=== PATIENT | female | born 1975 | race Caucasian/White ===

== ENCOUNTER 2016-06-20 10:15 | Emergency (ER) | payer BC ==
[2016-06-20] MEDS ORDERED: Ketorolac INJ* 60 MG/2 ML VIAL IM ONE (10:51)
--- NOTE | 2016-06-20 11:20 | ED ---
Upper Extremity Pain - HPI Summary HPI Summary: Patient presents to ED with right shoulder pain after stretching the shoulder during an injury 2 days ago. She states she has chronic pain in the shoulder from previous injuries and 2 days ago trapped her fingers inside a chair while walking which pulled the shoulder back creating pain in the anterior shoulder. Since that time, she has been unable to move it and she is unable to lift it without the aid of her left arm. She has taken ibuprofen without relief. She has an appt with Dr. Pereira tomorrow, but states she was unable to wait d/t pain. Denies other complaints or injury. The pain is localized to the right anterior shoulder and does not radiate. Pain is 8/10 and with attempting movement is 10/10. Pain is not worse at a specific time of day and nothing makes it better or worse. - History of Current Complaint Chief Complaint: EDShoulderClavicWaldoj Stated Complaint: RT SHOULDER PAIN Time Seen by Provider: 06/20/16 10:26 Hx Obtained From: Patient Hx Last Menstrual Period: current Mechanism Of Injury: Twisted Onset/Duration: Started Days Ago Timing: Constant Severity Initially: Moderate Severity Currently: Severe Pain Location: Shoulder Character: Aching, Burning Aggravating Factor(s): Movement, Lifting, Flexion, Extension, Internal/External Rotation, Abduction, Adduction Alleviating Factor(s): Rest, Ice Associated Signs & Symptoms: Positive: Negative Related History: Similar Episode/Dx As - previous shoulder injuries to the shoulder - Risk Factors Non-Orthopedic Risk Factor: Negative DVT Risk Factors: Negative Septic Arthritis Risk Factor: Negative Compartment Syndrome Risk Factors: Pain - Allergies/Home Medications Allergies/Adverse Reactions: Allergies Allergy/AdvReac Type Severity Reaction Status Date / Time Hydromorphone [From Dilaudid] Allergy Hallucinations, Verified 06/20/16 10:21 vomiting Meperidine [From Demerol HCl] Allergy Hallucinati Verified 06/20/16 10:21 ons Codeine AdvReac Mild Nausea Verified 06/20/16 10:21 Morphine AdvReac Mild Nausea Verified 06/20/16 10:21 Home Medications: Home Medications metFORMIN* [Glucophage 500 MG TAB *] 500 mg PO DAILY 06/20/16 [History Confirmed 06/20/16] PMH/Surg Hx/FS Hx/Imm Hx Previously Healthy: Yes Endocrine/Hematology History: Reports: Hx Diabetes Denies: Hx Anticoagulant Therapy, Hx Bone Marrow Disease, Hx Sickle Cell Disease, Hx Thyroid Disease, Hx Anemia Cardiovascular History: Reports: Other Cardiovascular Problems/Disorders - PE Denies: Hx Hypertension, Hx Pacemaker/ICD Respiratory History: Reports: Hx Pulmonary Embolism Denies: Hx Asthma, Hx Chronic Obstructive Pulmonary Disease (COPD), Hx Sleep Apnea, Other Respiratory Problems/Disorders GI History: Reports: Hx Hiatal Hernia - STATES HAS NO PROBLEMS WITH Denies: Hx Crohn's Disease, Hx Gastroesophageal Reflux Disease, Hx Irritable Bowel, Hx Ulcer History: Reports: Hx Kidney Infection - HX OF Denies: Other Problems/Disorders Musculoskeletal History: Reports: Hx Back Problems, Hx Tendonitis - RIGHT ELBOW , Other Musculoskeletal History Denies: Hx Arthritis Sensory History: Reports: Hx Contacts or Glasses Denies: Hx Hearing Aid Opthamlomology History: Reports: Hx Contacts or Glasses Neurological History: Reports: Hx Migraine - PERIOD RELATED Denies: Hx Nerve Disease, Hx Seizures Psychiatric History: Denies: Hx Anxiety, Hx Depression, Hx Panic Disorder - Surgical History Surgery Procedure, Year, and Place: [id number] [facility]. LEFT KNEE ARTHROSCOPY - 2003 [facility]. T+A 2006 [facility]. APPENDIX- 2008 [facility]. LEFT POINTER FINGER TRIGGER- 2009 [facility], CARPAL TUNNEL LT WRIST 11/2012. D&C [facility]. left trigger thumb Nov 2013. discectomy lumber 2013. SALIVARY GLAND REMOVED 2014. Hx Anesthesia Reactions: No - STATES SHE "COMES OUT OF ANESTHESIA SLOW" - Immunization History Date of Tetanus Vaccine: 2008 Date of Influenza Vaccine: Fall 2011 Hx Pertussis Vaccination: No Immunizations Up to Date: No Infectious Disease History: No Infectious Disease History: Denies: Hx Clostridium Difficile, Hx Hepatitis, Hx Human Immunodeficiency Virus (HIV), Hx of Known/Suspected MRSA, Hx Shingles, Hx Tuberculosis, Hx Known/ Suspected VRE, Hx Known/Suspected VRSA, History Other Infectious Disease, Traveled Outside the [place] in Last 30 Days - Family History Known Family History: Positive: None - Social History Occupation: Employed Full-time Lives: With Family Alcohol Use: Rare Hx Substance Use: No Substance Use Type: Reports: None Hx Tobacco Use: No Smoking Status (MU): Never Smoked Tobacco Do You Chew or Dip Tobacco: No Have You Chewed or Dipped Tobacco in the LAST YEAR: No Review of Systems Constitutional: Negative ENT: Negative Cardiovascular: Negative Respiratory: Negative Positive: no symptoms reported, see HPI Positive: Arthralgia - left anterior shoulder pain Skin: Negative Neurological: Negative All Other Systems Reviewed And Are Negative: Yes Physical Exam Triage Information Reviewed: Yes Vital Signs On Initial Exam: Initial Vitals Temp 98.3 F 06/20/16 10:22 Vital Signs Reviewed: Yes Appearance: Positive: Well-Appearing, No Pain Distress, Well-Nourished Skin: Positive: Warm, Skin Color Reflects Adequate Perfusion Head/Face: Positive: Normal Head/Face Inspection Eyes: Positive: EOMI, RASHAUN, Conjunctiva Clear Neck: Positive: Supple, No Lymphadenopathy Respiratory/Lung Sounds: Positive: Clear to Auscultation, Breath Sounds Present Cardiovascular: Positive: RRR Musculoskeletal: Positive: Limited @ - right shoulder adduction and abduction Neurological: Positive: Sensory/Motor Intact, Alert, Oriented to Person Place, Time, Speech Normal Psychiatric: Positive: Normal - Madeleine Coma Scale Best Eye Response: 4 - Spontaneous Best Motor Response: 6 - Obeys Commands Best Verbal Response: 5 - Oriented Coma Scale Total: 15 Diagnostics - Vital Signs Vital Signs Temp Pulse Resp BP Pulse Ox 06/20/16 10:41 92 98 06/20/16 10:40 160/111 06/20/16 10:23 98.1 F 95 16 141/97 100 06/20/16 10:22 98.3 F - Laboratory Lab Statement: Any lab studies that have been ordered have been reviewed, and results considered in the medical decision making process. Course/Dx - Course Course Of Treatment: Patient sent to xray d/t 10/10 pain and inability to move. Xray negative for pathologies. Unable to perform special shoulder tests d/t pain. Toradol given with minimal improvement. Precription given for hydrocodone. Patient will follow up with Dr. Pereira tomorrow. Sling given and educated to remain on until follow up for comfort. Moist heat to the area. Note for work x 2 days. - Diagnoses Differential Diagnosis/HQI/PQRI: Positive: Fracture (Open), Fracture (Closed), Strain, Sprain Provider Diagnoses: Rotator cuff injury Discharge - Discharge Plan Condition: Stable Disposition: HOME Prescriptions: HYDROcodone/ACETAMIN 5-325 MG* [Jackson 5-325 TAB*] 1 tab PO Q6H PRN #12 tab MDD 4 PRN Reason: Pain Patient Education Materials: Rotator Cuff Injury (ED), Rotator Cuff Tendinitis (ED) Forms: *Work Release Referrals: Yuliet Harper MD [Primary Care Provider] - Cory Pereira MD [Medical Doctor] - Additional Instructions: Dx. Muscle Strain Ibuprofen 600mg three times daily with meals for discomfort. For symptoms not well controlled with Ibuprofen, add the Jackson medication as prescribed. Alternate these two medications for maximum effect. Return to ED if symptoms worsen or fail to improve, notice worsening swelling, warmth or redness around the joint, develop fever, or pain is uncontrolled with OTC medications. Moist heat to the area for comfort. Warm showers or baths may improve symptoms. It is important to remain mobile as tolerated to prevent stiffening of the joints and delay healing. Follow up with your PCP and Dr. Pereira as scheduled tomorrow. Refrain from working for 2 days. Remain in sling for comfort.
--- NOTE | 2016-06-20 11:40 | RAD ---
Indication: RIGHT shoulder injury one month ago and reinjury hyperextending. Pain. Comparison: No relevant prior exams available on the [facility] PACS. Technique: Internal and external rotation AP and scapular Y views RIGHT shoulder Report: Normal acromioclavicular and glenohumeral joint alignment. Negative for arthropathic change. Negative for fracture or focal osseous lesion. Negative for stigmata of calcific tendinopathy. Unremarkable soft tissue contours. IMPRESSION: Negative exam.
[2016-06-20 12:06] VITALS: BP 116/87
== END 2016-06-20 12:07 | disposition home or self-care (01) ==
LOC: ED 10:15
DX: M25.511 Pain in right shoulder (principal); S46.001A Unspecified injury of muscle(s) and tendon(s) of the rotator cuff of right shoulder, initial encounter; X58.XXXA Exposure to other specified factors, initial encounter; Y92.9 Unspecified place or not applicable; E11.9 Type 2 diabetes mellitus without complications; Z79.84 Long term (current) use of oral hypoglycemic drugs; Z88.5 Allergy status to narcotic agent; Z86.711 Personal history of pulmonary embolism
CPT/HCPCS: 96372; 99282; J1885

== ENCOUNTER 2016-12-08 06:06 | Day surgery (SDC) | payer BC ==
[~2016-12-08 06:06] MED LIST: Buffered Lidocaine 0.9% SYRIN* 5 ML/SYR SYRINGE INTRADERM ONE
[2016-12-08] MEDS ORDERED: Buffered Lidocaine 0.9% SYRIN* 5 ML/SYR SYRINGE ONE (06:22)
[2016-12-08 06:56] LABS: Hematocrit 37 % (35-47); Hemoglobin 12.7 g/dl (12.0-16.0); Mean Corpuscular HGB Conc 35 g/dl (31-36); Mean Corpuscular Hemoglobin 27 pg (27-31); Mean Corpuscular Volume 79 fL (80-97); Mean Platelet Volume 7 um3 (7.4-10.4); Red Blood Count 4.68 10^6/ul (4.0-5.4); Red Cell Distribution Width 14 % (10.5-15); White Blood Count 6.1 10^3/ul (3.5-10.8)
[2016-12-08] MEDS ORDERED: Silver Nitrate/Potassium Nitr* 1 EA STICK ONE (07:25)
[2016-12-08] MEDS ORDERED: fentaNYL* 50 MCG/ML 2 ML VIAL (100 MCG VIAL) ONE (07:47)
[2016-12-08] MEDS ORDERED: Midazolam* 1 MG/ML 5 ML VIAL (5 MG) ONE (07:47)
[2016-12-08] MEDS ORDERED: Ondansetron INJ* 2 MG/ML VIAL ONE (08:50)
[2016-12-08] MEDS ORDERED: Propofol* 10 MG/ML 20 ML BTL IV PUSH ONE (08:50)
[2016-12-08] MEDS ORDERED: Ketorolac INJ* 30 MG/ML 1 ML VIAL IV PRN (08:52)
[2016-12-08] MEDS ORDERED: Hydrocodone/APAP 5/300 (NF) TAB PO PRN (09:14)
[2016-12-08] MEDS ORDERED: Ketorolac INJ* 30 MG/ML 1 ML VIAL ONE (09:43)
[2016-12-08 10:10] VITALS: BP 146/90
--- NOTE | 2016-12-09 03:20 | OP ---
OPERATIVE REPORT: DATE OF OPERATION: 12/08/16 - [facility] DATE OF : 73 SURGEON: Dr. Ribera. ANESTHESIOLOGIST: Dr. Houston. ANESTHESIA: Spinal. PRE-OP DIAGNOSIS: Menorrhagia, thickened endometrium. POST-OP DIAGNOSIS: Menorrhagia, thickened endometrium. OPERATIVE PROCEDURE: Dilation, hysteroscopy, MyoSure removal of polyp, and curettage. ESTIMATED BLOOD LOSS: Minimal, less than 30 cc. FINDINGS: Small retroverted uterus, polyp approximately 1.5 cm originating from the left fundus of the uterus. No adnexal mass is palpated. COMPLICATIONS: None. COUNTS: Sponge, lap and needle count were correct x2. CONDITION: The patient was brought to recovery room, awake and in stable condition. DESCRIPTION OF PROCEDURE: The patient was brought to the operating room. When anesthesia was found to be adequate, the patient was prepped and draped in the usual sterile fashion in the dorsal lithotomy position. Sequential compression devices were activated throughout the surgery. Time-out was performed. The bladder was emptied of 300 cc of urine. The weighted speculum was placed in the vagina. The anterior lip of the cervix was grasped with a single tooth tenaculum and the cervix was gently and easily dilated with graduated Hegar dilators to a size 8. The MyoSure scope was then introduced with the above findings noted. The MyoSure was used to remove the polyp in its entirety. The specimen was sent to pathology. The scope was removed. Curettage was performed and endometrial curettings were then sent to pathology. All instruments removed from the vagina. Excellent hemostasis was noted and the patient was brought to the recovery room, awake and in stable condition. [id number]/[facility] #: [id number] [facility]
== END 2016-12-08 10:12 | disposition home or self-care (01) ==
LOC: OR 06:06
PROVIDERS: ATTEND Obstetrics & Gynecology
DX: N84.0 Polyp of corpus uteri (principal); N92.0 Excessive and frequent menstruation with regular cycle; R93.8 Abnormal findings on diagnostic imaging of other specified body structures; D25.9 Leiomyoma of uterus, unspecified; Z88.5 Allergy status to narcotic agent; E11.9 Type 2 diabetes mellitus without complications; Z79.84 Long term (current) use of oral hypoglycemic drugs; N92.5 Other specified irregular menstruation; N85.8 Other specified noninflammatory disorders of uterus; I10 Essential (primary) hypertension; E66.9 Obesity, unspecified; Z68.38 Body mass index [BMI] 38.0-38.9, adult
CPT/HCPCS: 36415; 62323; 81025; 85025; 86850; 86900; 86901; 88305; A9270-GY; J1885; J2250; J2405; J2704; J3010

== ENCOUNTER 2017-03-23 06:31 | Observation (INO) | payer BC ==
[~2017-03-23 06:31] MED LIST changes: +Acetaminophen IV 1GM/100ML * 1,000 MG/100 ML VIAL IVPB ONE; +Famotidine IV* 10 MG/ML 2 ML (20 mg) IV ONE; +Scopolamine 1.5 mg* PATCH TRANSDERM ONE
[2017-03-23] MEDS ORDERED: Famotidine IV* 10 MG/ML 2 ML (20 mg) ONE (06:43)
[2017-03-23] MEDS ORDERED: Buffered Lidocaine 0.9% SYRIN* 5 ML/SYR SYRINGE ONE (06:43)
[2017-03-23] MEDS ORDERED: Scopolamine 1.5 mg* PATCH ONE (06:43)
[2017-03-23] MEDS ORDERED: Midazolam* 1 MG/ML 2 ML VIAL (2 MG) ONE ×2 (06:54→08:05)
[2017-03-23] MEDS ORDERED: fentaNYL* 50 MCG/ML 2 ML VIAL (100 MCG VIAL) ONE ×2 (06:54→08:06)
[2017-03-23] MEDS ORDERED: Lidocaine 1% MPF wEPI 200,000* 30 ML SDV ONE (07:02)
[2017-03-23] MEDS ORDERED: Thrombin 5,000 UNITS* 1 APPLIC KIT - topical use - TOPICAL ONE (07:02)
[2017-03-23] MEDS ORDERED: Bacitracin IV* 50,000 UNITS INJ ONE (07:02)
[2017-03-23] MEDS ORDERED: Rocuronium* 10 MG/ML VIAL ONE ×2 (07:05→08:56)
[2017-03-23] MEDS ORDERED: Lidocaine 2% PF * 5 ML VIAL ONE (07:06)
[2017-03-23] MEDS ORDERED: Acetaminophen IV 1GM/100ML * 0 ML ONE (07:21)
[2017-03-23] MEDS ORDERED: Nalbuphine* 20 MG/ML 1 ML VIAL IV PRN (07:25)
[2017-03-23] MEDS ORDERED: Ondansetron INJ* 2 MG/ML VIAL IV PRN ×2 (07:25→11:29)
[2017-03-23] MEDS ORDERED: fentaNYL* 50 MCG/ML 2 ML VIAL (100 MCG VIAL) IV PRN (07:25)
[2017-03-23] MEDS ORDERED: oxyCODONE TAB* 5 MG TAB PO PRN (07:25)
[2017-03-23] MEDS ORDERED: PROCHLORPERAZINE INJ 5 MG/ML 2 ML VIAL IV PRN (07:25)
[2017-03-23] MEDS ORDERED: Naloxone* 0.4 MG/ML 1 ML VIAL IV PRN (07:25)
[2017-03-23] MEDS ORDERED: Sugammadex * 200 MG/2 ML VIAL IV PUSH ONE (07:33)
[2017-03-23] MEDS ORDERED: ceFAZolin 2 GM PREMIX (*) 2 GM/50 ML BAG IVPB ONE (08:00)
[2017-03-23] MEDS ORDERED: Propofol* 500 MG/50 ML BTL ONE (08:26)
[2017-03-23] MEDS ORDERED: Metoclopramide IV* 5 MG/ML 2 ML VIAL ONE (08:42)
[2017-03-23] MEDS ORDERED: Ondansetron INJ* 2 MG/ML VIAL ONE (08:42)
[2017-03-23] MEDS ORDERED: Ketorolac INJ* 30 MG/ML 1 ML VIAL ONE (08:42)
[2017-03-23] MEDS ORDERED: EPHEDrine (Pressors)* 50 MG/ML VIAL ONE (08:50)
[2017-03-23] MEDS ORDERED: Acetaminophen IV 1GM/100ML * 100 ML ONE (10:14)
--- NOTE | 2017-03-23 10:38 | RAD ---
INDICATION: Lumbar discectomy at L5-S1 COMPARISONS: MRI dated January 25, 2017 TECHNIQUE: Fluoroscopy was provided for a surgical procedure. Total fluoroscopy time is: 10.2 seconds FINDINGS: There is transitional anatomy. Spot images demonstrate a metallic probe opposite of L4-L5 using a candidate ischemia as described on the previous MRI. IMPRESSION: FLUOROSCOPY WAS PROVIDED FOR A SURGICAL PROCEDURE CPT II Codes: 6045F
[2017-03-23] MEDS ORDERED: Insulin REGULAR(*) 1 UNITS UNIT ONE (11:10)
[2017-03-23] MEDS ORDERED: Magnesium Hydroxide LIQ* 30 ML UDC PO PRN (11:29)
[2017-03-23] MEDS ORDERED: HYDROcodone/ACETAMIN 5-325 MG* 1 TAB PO PRN ×2 (11:29)
[2017-03-23] MEDS ORDERED: Dextrose 50% Syringe 50 ML* 25 GM/50 ML SYRINGE IV PUSH PRN (17:03)
[2017-03-23] MEDS ORDERED: Insulin LISPRO* 1 UNITS UNIT SUBCUT ONE (17:58)
[2017-03-23] MEDS: Insulin LISPRO* 1 UNITS UNIT SUBCUT SCH (18:00)
[2017-03-23] MEDS: Acetaminophen TAB* 325 MG PO PRN (18:03)
--- NOTE | 2017-03-23 21:24 | CONS ---
CC: Dr. Castellanos; Dr. Harper * CONSULTATION REPORT: DATE OF CONSULT: 03/23/17 PRIMARY CARE PROVIDER: Dr. Harper. CHIEF COMPLAINT: Consult was requested from Dr. Castellanos in regards to medical management of the patient with diabetes. HISTORY OF PRESENT ILLNESS: Mrs. Stiles is a 42-year-old female with history of degenerative disk disease. The patient had a lumbar spine decompression in the past on the right side. She stated she had been having left-sided sciatica symptoms for a few months and went to see Dr. Castellanos who decided to perform microdiskectomy of the lumbar spine on the left. The patient is postoperative day #0 today. She is doing fine, complaints of no pain apart from the mild headache. PAST MEDICAL HISTORY: 1. Diabetes, on metformin. 2. History of postoperative knee arthroscopic surgery, PE, and DVT in 2003. The patient stated that she was evaluated by Dr. Mariscal and had negative hypercoagulable workup. MEDICATIONS: At home include: 1. Metformin 500 mg b.i.d. that was just increased to 3 times a day presurgery. 2. Meloxicam 75 mg b.i.d. p.r.n. ALLERGIES: Include HYDROMORPHONE, MEPERIDINE, CODEINE, MORPHINE; all of them cause nausea and hallucinations. FAMILY HISTORY: Unknown. SOCIAL HISTORY: The patient is . Her is the surrogate. 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 She denies any tobacco, alcohol, or drug use. REVIEW OF SYSTEMS: Please see history of present illness. All the remaining 12 systems were reviewed with the patient and and were otherwise negative. PHYSICAL EXAM: Blood pressure of 142/87, heart rate of 101 and , respiratory rate 16, oxygen saturation 97% on room air, temperature of 98.5. General: The patient is a very pleasant 42-year-old female, who is in no acute distress. Alert, awake, oriented x3. HEENT: Head atraumatic, normocephalic. Eyes: Pupils are equal, reactive to light and accommodation. Oropharynx clear. Mucosa moist. Neck: Supple. No JVD, no bruits bilaterally. Cardiovascular: Regular rate and rhythm. No murmur. Respiratory: Clear to auscultation bilaterally. Abdomen: Soft, nontender. Bowel sounds are present in all 4 quadrants. Extremities: There is no edema. Pulses +2 bilaterally. No clubbing or cyanosis. Evaluation of the skin: The patient has a postsurgical dressing in the area of lower spine. There is no evidence of surrounding skin erythema. Neuro evaluation: Speech clear. Cranial nerves II through XII grossly intact. Motor strength is 5/5 bilaterally. LABORATORY DATA: Values included sugars that had been in the range of 190 to 156. ASSESSMENT AND PLAN: 1. In regards to the patient's diabetes. The patient stated that her sugars had been uncontrolled recently and her metformin was increased to 3 times a day. Her metformin was started by Dr. Castellanos with which I agree. In addition to the above, I will place the patient on insulin sliding scale while in the hospital. 2. In regards to DVT prophylaxis in this patient status post neurosurgical procedure. I will ask Dr. Castellanos to address it. Sequential compression devises were already ordered. 3. The patient's code status is full and her surrogate is her . TIME SPENT: Approximately 55 minutes were spent on consultation of this patient , more than half of that time was spent face to face with the patient during the interview and physical exam. [id number]/[facility] #: [id number] MTDD
[2017-03-24] MEDS: Acetaminophen TAB* 325 MG PO PRN (05:43)
[2017-03-24 06:48] LABS: ABS Basophils 0.1 10^3/ul (0-0.2); ABS Eosinophils 0 10^3/ul (0-0.6); ABS Lymphocytes 1.9 10^3/ul (1.0-4.8); ABS Monocytes 0.6 10^3/ul (0-0.8); ABS Neutrophils 5.1 10^3/ul (1.5-7.7); ABS Nucleated RBC 0 10^3/ul; Eosinophil % 0.6 % (0-6); Hematocrit 34 % (35-47); Hemoglobin 11.8 g/dl (12.0-16.0); Lymphocyte % 24.2 % (25-47); Mean Corpuscular HGB Conc 35 g/dl (31-36); Mean Corpuscular Hemoglobin 28 pg (27-31); Mean Corpuscular Volume 80 fL (80-97); Mean Platelet Volume 7 um3 (7.4-10.4); Nucleated Red Blood Cells % 0; Platelet Count 251 10^3/ul (150-450); Red Blood Count 4.22 10^6/ul (4.0-5.4); Red Cell Distribution Width 14 % (10.5-15); White Blood Count 7.7 10^3/ul (3.5-10.8)
[2017-03-24 07:01] LABS: EGFR Non-African American 134.7 (>60)
[2017-03-24 07:56] VITALS: BP 139/84
[2017-03-24] MEDS: Insulin LISPRO* 1 UNITS UNIT SUBCUT SCH (08:33)
[2017-03-24] MEDS ORDERED: Potassium Chlor TAB* 20 MEQ TAB.ER PO ONE (08:43)
[2017-03-24] MEDS ORDERED: metFORMIN* 500 MG TAB PO SCH (09:00)
--- NOTE | 2017-03-24 10:29 | PN ---
Progress Note - Progress Note Date of Service: 03/24/17 SOAP: Subjective: []No events ON. Patient tolerates PO well. Ambulates well, Voids. LLE pain resolved. Used only Tylenol. Wants to go home. Objective: []VSS Afebrile Wound soft, clean, dry. AAOx3 RASHAUN, CN II-XII grossly intact. Motor 5/5 Sensory grossly intact to light touch. DTR, +1 darryn. Assessment: []42 yof POD#1 Left L5-S1 LMD Plan: []Encourage ambulation. DC planning. Appreciate IM input. May DC home if ok with IM. Follow up in office in one week. Full instructions given to patient. Karen Castellanos MD
--- NOTE | 2017-03-24 11:41 | OP ---
OPERATIVE REPORT: DATE OF OPERATION: 03/23/17 DATE OF : 73 SURGEON: Heather Castellanos MD WATER METER READER: Tanya Rosales. ANESTHESIA: General. PRE-OP DIAGNOSIS: Left L5-S1 herniated nucleus pulposus. POST-OP DIAGNOSIS: Left L5-S1 herniated nucleus pulposus. OPERATIVE PROCEDURE: The patient underwent left L5-S1 lumbar microdiskectomy. ESTIMATED BLOOD LOSS: 10 cc. COMPLICATIONS: None. SUMMARY: The patient is a very pleasant 42-year-old female with a history of a previous diskectomy at L5-S1 level on the right by Dr. Gonzales. Of note, the patient has transitional anatomy and the L5-S1 disk space, which is described in this report, is referred as L4-5 in the radiology report of the MRI of the lumbar spine. The patient developed significant complaints of back pain radiating to the left lower extremity with MRI revealing a large left L5-S1 herniated nucleus pulposus. After failing conservative treatment modalities, she was offered the option of surgical intervention in the form of left L5-S1 lumbar microdiskectomy with the understanding of the level being the same as the L4-5 level described in the MRI report. After all expectations, limitations , possible complications of the procedure had been explained in detail with the patient with complications included but not limited to bleeding, infection, risk of injury to adjacent structures, paralysis, , need for additional procedures, anesthesia risk, stroke, blindness, cancer, instability, the patient and her understood and they are agreeable to proceed with surgery. Informed consent was obtained. The patient understood that her condition may not improve and in fact may get worse after surgery and that she may need to have additional procedure in the future so that the operative plan may be modified according to intraoperative findings and conditions. DESCRIPTION OF PROCEDURE: The patient was brought to the operating room and was placed under general anesthesia by the anesthesia team. She was carefully positioned prone on the Luís frame on the Barry table and all bony prominences were meticulously padded. Her skin was prepped and draped in the standard fashion and after appropriate surgical pause and the patient identification, the previous incision was again identified and marked on the skin. After appropriate surgical level identification with intraoperative fluoroscopic imaging, the skin incision site was infiltrated with local anesthetic and a #10 surgical blade was used to incise the skin over the previous skin incision site. The incision was carried down to the dorsal fascia with use of Bovie cautery. Self-retaining retractors were introduced into the field and the dorsal fascia was divided towards the left side of the midline. The paraspinal musculature was elevated with use of Bovie cautery and periosteal elevator and a Drew self-retaining retractor was introduced into the field. Fluoroscopic imaging was again obtained and confirmed the appropriate surgical level. A small laminotomy with a partial medial facetectomy was performed with high-speed drill and Kerrison punches. The ligamentum flavum was gently retracted and the lateral aspect of the dura and the S1 nerve root were readily identified. A large disk protrusion was identified beneath the nerve root and thecal sac at the disk level as was expected from the preoperative MRI. The thecal sac and the nerve root were gently retracted medially with use of nerve root retractor and after confirmation of meticulous hemostasis, a #15 surgical blade was used to incise the annulus fibrosus. A standard diskectomy was performed with the use of pituitary rongeurs and curettes. A small area of calcification was identified and was gently dissected with the use of down-pushing curettes. At the end of the procedure, after meticulous hemostasis and copious irrigation, the dura and the nerve root were found to be free of any pressure phenomenon, and then further foraminotomy over the left S1 nerve root was performed with the use of Kerrison punches. A last intraoperative fluoroscopic imaging was obtained with marker at disk space, which was again identified as L5-S1 and correlates with the reported L4-5 at the MRI report. After copious irrigation and confirmation of meticulous hemostasis, the wound was closed by layers after removal of the self-retaining retractors with 0 interrupted Vicryl suture to approximate the dorsal fascia and 2-0 interrupted Vicryl suture to approximate the subcutaneous tissue, and 4-0 Monocryl in the subcuticular layer to approximate the skin. The skin was covered with Steri-Strips and sterile sponges. At the end of the procedure, all counts were reported to be correct. The patient remained hemodynamically stable throughout the case. She was then gently turned supine, was extubated and was transferred to Recovery in excellent condition, moving all extremities. I was present and scrubbed for the entirety of the case. [id number]/[facility] #: [id number] MARIA EUGENIA
[2017-03-26] MEDS ORDERED: Scopolamine PATCH Remove* 1 NOTE MISC PATCH OFF ONE (06:00)
--- NOTE | 2017-03-26 13:56 | DS ---
DISCHARGE SUMMARY: DATE OF ADMISSION: 03/23/17 DATE OF DISCHARGE: 03/24/17 ADMISSION DIAGNOSIS: Left L5-S1 herniated nucleus pulposus. POST-OP DIAGNOSIS: Left L5-S1 herniated nucleus pulposus. PROCEDURE: The patient underwent left L5-S1 diskectomy. HOSPITAL COURSE: The patient is a very pleasant 42-year-old female with history of a previous right L5-S1 diskectomy in the past who presented with new complaints of back pain radiating to left lower extremity. MRI revealed a large left L5-S1 herniated nucleus pulposus. After failing conservative treatment she was offered the option of surgical intervention in the form of left L5-S1 lumbar microdiskectomy. She was explained the nature of the procedure as well as the expectations, risks, possible complications of the procedure with complication including but not limited to bleeding, infection, risk of adjacent to structures, paralysis, , need for additional procedures , anesthesia risks, stroke, blindness, cancer, instability, spinal fluid leak and need for additional procedure in the future. The patient was agreeable to proceed with surgery. Informed consent was obtained. The patient tolerated the procedure well, was extubated, was transferred to regular floor. She had significant improvement of her condition with resolution of her left lower extremity pain. She was able to ambulate and tolerate p.o. well, voiding, and on the first postoperative day she was neurologically intact and it was felt that she was able to be discharged home. DISPOSITION: Home. The patient was discharged to home with full instructions and prescription for Vicodin. [id number]/[facility] #: [id number] MARIA EUGENIA
== END 2017-03-24 11:36 | disposition home or self-care (01) | DRG 310 ==
LOC: OR 06:31 → SSU 11:52 → INTOOBSV 11:52 → OBSVTOIN 11:52 → INTOOBSV 03-24 11:35
PROVIDERS: ADMIT Neurological Surgery; ATTEND Neurological Surgery
DX: M51.27 Other intervertebral disc displacement, lumbosacral region (principal); E11.9 Type 2 diabetes mellitus without complications; M47.27 Other spondylosis with radiculopathy, lumbosacral region; R51 Headache; Z88.5 Allergy status to narcotic agent; Z88.8 Allergy status to other drugs, medicaments and biological substances; N39.3 Stress incontinence (female) (male)
CPT/HCPCS: 36415; 76001; 80048; 85025; 96374; 96375; A9270-GY; G0378; J0690; J1885; J2001; J2250; J2405; J2704; J2765; J3010

== ENCOUNTER 2017-07-16 17:23 | Observation (INO) | payer BC ==
[2017-07-16] MEDS ORDERED: Aspirin 81 mg CHEW TAB* 81 MG TAB.CHEW PO ONE (17:40)
[2017-07-16] MEDS ORDERED: Labetalol IV* 5 MG/ML 20 ML VIAL IV PUSH ONE (17:50)
[2017-07-16 17:56] LABS: ABS Basophils 0.1 10^3/ul (0-0.2); ABS Eosinophils 0.1 10^3/ul (0-0.6); ABS Lymphocytes 2.1 10^3/ul (1.0-4.8); ABS Monocytes 0.5 10^3/ul (0-0.8); ABS Neutrophils 4.8 10^3/ul (1.5-7.7); ABS Nucleated RBC 0 10^3/ul; Eosinophil % 1.8 % (0-6); Hematocrit 40 % (35-47); Hemoglobin 13.5 g/dl (12.0-16.0); Lymphocyte % 27.7 % (25-47); Mean Corpuscular HGB Conc 34 g/dl (31-36); Mean Corpuscular Hemoglobin 27 pg (27-31); Mean Corpuscular Volume 80 fL (80-97); Mean Platelet Volume 7.1 um3 (7.4-10.4); Nucleated Red Blood Cells % 0.1; Platelet Count 295 10^3/ul (150-450); Red Blood Count 5.06 10^6/ul (4.0-5.4); Red Cell Distribution Width 14 % (10.5-15); White Blood Count 7.7 10^3/ul (3.5-10.8)
[2017-07-16 18:13] LABS: EGFR Non-African American 111.2 (>60)
--- NOTE | 2017-07-16 18:21 | RAD ---
INDICATION: Chest pain COMPARISON: March 20, 2017 TECHNIQUE: An AP portable view obtained at 1810 hours is submitted. FINDINGS: Bones/Soft Tissues: There are no acute bony findings. Cardiomediastinal: The cardiomediastinal silhouette is normal. Lungs: There are no infiltrates. Pleura: There are no pleural effusions. Other: None IMPRESSION: NORMAL CHEST.
[2017-07-16] MEDS ORDERED: Magnesium Sulfate 1 GM IV* 1 GM/100 ML BAG IV ONE (19:38)
[2017-07-16] MEDS ORDERED: Acetaminophen TAB* 325 MG PO PRN (20:06)
[2017-07-16] MEDS ORDERED: Ondansetron ODT TAB* 4 MG PO PRN (20:07)
[2017-07-16] MEDS ORDERED: Metoprolol Tartrate IV* 1 MG/ML 5 ML VIAL IV PRN (20:07)
[2017-07-16] MEDS ORDERED: CMCS:Melatonin (NF) 3 MG TAB PO PRN (20:07)
[2017-07-16] MEDS ORDERED: Metoprolol Tartrate TAB* 25 MG PO ONE (20:08)
--- NOTE | 2017-07-16 20:08 | HP ---
H&P (Free Text) History and Physical: PCP: Sary Harper MD Date/Time: 07/16/20172009 CC: chest pain HPI: Mrs Stiles is a 42YO obese female HX DM2 & pulmonary embolism who presents reporting feeling malaise all day. She laid down on her cough and developed 8/ 10 R-sided chest pressure radiating mildly to the back and slightly worse with inspiration associated with nausea & light-headedness, but no sweating, palpitations, or SOB. [place] arrival [place] [facility] she was given 324mg aspirin and IV labetalol for HTN and her chest pressure decreased from 8/4. She states this feels differently from her prior PE and her d-dimer is <200. As we are not doing stress test until Monday, she was given the option for r/o in the ED vs overnight observation. She preferred the latter. PMedHx DM2 pulmonary embolism degenerative disc disease Ambulatory Orders metFORMIN* [Glucophage 500 MG TAB *] 1,000 mg PO BID 06/20/16 Allergies meperidine Allergy (Intermediate, Verified 07/16/17 17:31) Hallucinations Hallucinations, Vomiting hydromorphone Allergy (Verified 07/16/17 17:31) Vomiting vomiting, halucinations codeine Adverse Reaction (Mild, Verified 07/16/17 17:31) Nausea morphine Adverse Reaction (Mild, Verified 07/16/17 17:31) Nausea nausea, hallucinations PSurgHx tonsillectomy appendectomy section spinal surgery x2 L elbow tendon repair L knee arthoscopy complicated by pulmonary embolism SocHx: no tobacco, alcohol, or recreational drugs; lives with her ; 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[facility]; full code status FamHx: adopted, only known information is that biological father had DM & and unknown cancer ROS: as above, otherwise reviewed and all were negative vitals: Vital Signs Temp 36.6 C 07/16/17 17:31 Pulse 89 07/16/17 19:21 Resp 21 07/16/17 19:21 BP 145/100 07/16/17 19:21 Pulse Ox 96 07/16/17 19:21 Intake & Output 07/15/17 07/16/17 07/16/17 23:59 11:59 23:59 Weight 97.522 kg Constitutional: NAD, normally developed, obese female HEENM: atraumatic; sclera/conjunctiva: anicteric/clear; hearing: clinically inatact; oropharynx: clear, mucosa moist Neck: soft tissue: non-tender; thyroid: normal Pulmonary: clear to auscultation bilaterally, good aeration, no accessory muscle use CV: RR/RR, normal S1S2, no carotid bruit, no jugular venous distention, 2+ B DP/ PT, no edema Abdominal: soft, non-distended, non-tender, no rebound/guarding/rigidity, normoactive bowel sounds, no hepatosplenomegaly or masses, no costovertebral angle tenderness Musculoskeletal: general: grossly intact, non-tender Integumental: normal appearance and texture of exposed skin Psychiatric orientation: AA&O to PPS affect: calm mood: cooperative eye contact: good content: reliable responses: timely insight: good Testing: Lab Results 07/16/17 07/16/17 07/16/17 Range/Units 17:49 17:50 17:50 WBC 7.7 (3.5-10.8) 10^3/ul RBC 5.06 (4.0-5.4) 10^6/ul Hgb 13.5 (12.0-16.0) g/dl Hct 40 (35-47) % MCV 80 (80-97) fL MCH 27 (27-31) pg MCHC 34 (31-36) g/dl RDW 14 (10.5-15) % Plt Count 295 (150-450) 10^3/ul MPV 7.1 L (7.4-10.4) um3 Neut % (Auto) 62.6 (38-83) % Lymph % (Auto) 27.7 (25-47) % [place] % (Auto) 7.1 H (0-7) % Eos % (Auto) 1.8 (0-6) % Baso % (Auto) 0.8 (0-2) % Absolute Neuts (auto) 4.8 (1.5-7.7) 10^3/ul Absolute Lymphs (auto) 2.1 (1.0-4.8) 10^3/ul Absolute Monos (auto) 0.5 (0-0.8) 10^3/ul Absolute Eos (auto) 0.1 (0-0.6) 10^3/ul Absolute Basos (auto) 0.1 (0-0.2) 10^3/ul Absolute Nucleated RBC 0 10^3/ul Nucleated RBC % 0.1 D-Dimer, Quantitative < 200 (Less Than 230) ng/mL Sodium 136 L (139-145) mmol/L Potassium 3.6 (3.5-5.0) mmol/L Chloride 102 (101-111) mmol/L Carbon Dioxide 22 (22-32) mmol/L Anion Gap 12 H (2-11) mmol/L BUN 14 (6-24) mg/dL Creatinine 0.59 (0.51-0.95) mg/dL Est GFR ( Amer) 143.1 (>60) Est GFR (Non-Af Amer) 111.2 (>60) BUN/Creatinine Ratio 23.7 H (8-20) Glucose 190 H (70-100) mg/dL Lactic Acid (0.5-2.0) mmol/L Calcium 9.1 (8.6-10.3) mg/dL Magnesium 1.6 L (1.9-2.7) mg/dL Total Bilirubin 0.30 (0.2-1.0) mg/dL AST 12 L (13-39) U/L ALT 16 (7-52) U/L Alkaline Phosphatase 72 (34-104) U/L Total Creatine Kinase 48 (10-223) U/L CK-MB (CK-2) 1.4 (0.6-6.3) ng/mL Troponin I 0.00 (<0.04) ng/mL B-Natriuretic Peptide ( - 100) pg/mL Total Protein 7.0 (6.4-8.9) g/dL Albumin 3.8 (3.2-5.2) g/dL Globulin 3.2 (2-4) g/dL Albumin/Globulin Ratio 1.2 (1-3) TSH 2.61 (0.34-5.60) mcIU/mL 07/16/17 07/16/17 Range/Units 17:50 17:50 WBC (3.5-10.8) 10^3/ul RBC (4.0-5.4) 10^6/ul Hgb (12.0-16.0) g/dl Hct (35-47) % MCV (80-97) fL MCH (27-31) pg MCHC (31-36) g/dl RDW (10.5-15) % Plt Count (150-450) 10^3/ul MPV (7.4-10.4) um3 Neut % (Auto) (38-83) % Lymph % (Auto) (25-47) % [place] % (Auto) (0-7) % Eos % (Auto) (0-6) % Baso % (Auto) (0-2) % Absolute Neuts (auto) (1.5-7.7) 10^3/ul Absolute Lymphs (auto) (1.0-4.8) 10^3/ul Absolute Monos (auto) (0-0.8) 10^3/ul Absolute Eos (auto) (0-0.6) 10^3/ul Absolute Basos (auto) (0-0.2) 10^3/ul Absolute Nucleated RBC 10^3/ul Nucleated RBC % D-Dimer, Quantitative (Less Than 230) ng/mL Sodium (139-145) mmol/L Potassium (3.5-5.0) mmol/L Chloride (101-111) mmol/L Carbon Dioxide (22-32) mmol/L Anion Gap (2-11) mmol/L BUN (6-24) mg/dL Creatinine (0.51-0.95) mg/dL Est GFR ( Amer) (>60) Est GFR (Non-Af Amer) (>60) BUN/Creatinine Ratio (8-20) Glucose (70-100) mg/dL Lactic Acid 3.1 H* (0.5-2.0) mmol/L Calcium (8.6-10.3) mg/dL Magnesium (1.9-2.7) mg/dL Total Bilirubin (0.2-1.0) mg/dL AST (13-39) U/L ALT (7-52) U/L Alkaline Phosphatase (34-104) U/L Total Creatine Kinase (10-223) U/L CK-MB (CK-2) (0.6-6.3) ng/mL Troponin I (<0.04) ng/mL B-Natriuretic Peptide 19 ( - 100) pg/mL Total Protein (6.4-8.9) g/dL Albumin (3.2-5.2) g/dL Globulin (2-4) g/dL Albumin/Globulin Ratio (1-3) TSH (0.34-5.60) mcIU/mL ECG, personally reviewed: NSR rate 86, inverted T-wave III; otherwise similar to comparison 03/20/2017 CXR, personally reviewed: IMPRESSION: NORMAL CHEST. Impression: 42F HX DM2 & PE presents with atypical chest pain for r/o ACS DIAGNOSIS & PLAN Primary atypical chest pain r/o ACS : aspirin given in ED : labetalol given in ED : telemetry : trend troponin : repeat ECG in AM : check ECHO in AM : supplemental oxygen : supportive care Secondary DM2 : update A1c : consistent carb heart healthy diet no caffeine : continue metformin, add correctional insulin HX PE : no tachycardia, SOB, negative d-dimer, no calf pain/swelling; low clinical suspicion : SCDs & heparin SQ Admission Rational: observation for r/o ACS DVTp: SCDs & heparin SQ Code Status: full HCP:
[2017-07-16] MEDS ORDERED: NS 0.9% 1000 ML* 1,000 ML IV SCH (20:15)
[2017-07-16] MEDS ORDERED: Magnesium Sulfate IV* 2 GM in NS 0.9% 100 ML* 100 ML IVPB ONE (21:10)
[2017-07-16 21:35] LABS: INR 0.8 (0.77-1.02)
[2017-07-16 21:37] LABS: EGFR Non-African American 125.9 (>60)
[2017-07-16] MEDS ORDERED: Magnesium Sulfate 2 GM IV IVPB ONE (22:00)
[2017-07-16] MEDS: metFORMIN* 500 MG TAB PO SCH (22:06)
[2017-07-16] MEDS: Docusate CAP* 100 MG PO SCH (22:07)
[2017-07-17] MEDS ORDERED: Heparin VIAL(*) 5000 UNITS/ML VIAL (FIVE THOUSAND) SUBCUT SCH (06:00)
[2017-07-17] MEDS ORDERED: Omeprazole CAP* 20 MG PO SCH (06:00)
[2017-07-17] MEDS ORDERED: Perflutren Lipid Microsphere* 3 ML VIAL ONE (08:08)
[2017-07-17] MEDS: Docusate CAP* 100 MG PO SCH (08:43)
[2017-07-17] MEDS: metFORMIN* 500 MG TAB PO SCH (08:43)
[2017-07-17] MEDS ORDERED: Aspirin EC TAB* 81 MG TAB.EC PO SCH (09:00)
[2017-07-17 11:42] VITALS: BP 125/71
--- NOTE | 2017-07-17 12:29 | ECHO ---
Patient: PARKER MUKHERJEE [facility] Rec#: [id number] : 1975 Date: 07/17/2017 Age: 42y Height: 157.48 cm / 62.0 in Weight: 97.52 kg / 214.9 lbs Sex: F BSA: 1.97 Room#: 451 Admit Date#: 07/16/2017 Type: Inpatient Referring: Jason Smith MD Reading: Jenna Mendiola MD [employer] Plant Operator: Samaria Schmidt,ASHISHCS,RDMS CC: FRANCINE ORDAZ Transthoracic Echocardiogram Indication: CP BP: 130/82 HR: 84 Rhythm: NSR Findings History: DM, PE Technical Comments: The study quality is fair. The study is technically limited due to poor apical windows. Left Ventricle: The left ventricular chamber size is normal. There is a prominent septal knuckle. The estimated ejection fraction is 55-60%. There is an E to A reversal in the mitral valve flow pattern suggestive of diastolic dysfunction. Left Atrium: The left atrium is slightly dilated. Right Ventricle: The right ventricular chamber size and systolic function are within normal limits. Right Atrium: The right atrial cavity size is normal. Aortic Valve: The aortic valve is trileaflet. There is no evidence of aortic valve thickening. Systolic excursion of the aortic valve is normal. There is no evidence of aortic regurgitation. There is no evidence of aortic stenosis. Mitral Valve: The mitral valve leaflets appear normal. There is a trace of mitral regurgitation. There is no evidence of mitral stenosis. Tricuspid Valve: The tricuspid valve leaflets are normal. There is trace tricuspid regurgitation. No pulmonary hypertension is noted. Pulmonic Valve: The pulmonic valve appears normal. There is a trace pulmonic regurgitation. Pericardium: There is no significant pericardial effusion. Aorta: The aortic root appears normal. There is no dilatation of the aortic arch. Pulmonary Artery: The main pulmonary artery appears normal. Venous: The inferior vena cava appears normal in size. There is a greater than 50% respiratory change in the inferior vena cava dimension. Contrast: Definity was used to optimize study. A total of 2 ml was used Summary: There was not any prior study for comparison. Conclusions The left ventricular chamber size is normal. The estimated ejection fraction is 55-60%. There is an E to A reversal in the mitral valve flow pattern suggestive of diastolic dysfunction. There is a trace of mitral regurgitation. There is trace tricuspid regurgitation. There is a trace pulmonic regurgitation. Measurements Name Value Normal Range RVIDd (AP) 2D 2.5 cm (0.9 - 2.6) RVDdMajor (2D) 3 cm (2.2 - 4.4) RAd ISD 4CH 4.8 cm (3.4 - 4.9) RA (A4C)W 4.1 cm (2.9 - 4.6) IVSd (2D) 1.3 cm (0.6 - 1) LVPWd (2D) 1 cm (0.6 - 1) LVIDd (2D) 4.2 cm (3.6 - 5.4) LVIDs (2D) 2.7 cm - LV FS (2D) 35 % (25 - 45) Aortic Annulus 2 cm (1.4 - 2.6) Ao root diameter (2D) 3.2 cm (2.1 - 3.5) Ascending Ao 3.1 cm (2.1 - 3.4) Aortic arch 3 cm (1.8 - 3.4) LA dimension (AP) 2D 3.9 cm (2.3 - 3.8) LAd ISD 4CH 5.7 cm (2.9 - 5.3) LA ISD 4CH W 3.9 cm (2.5 - 4.5) Name Value Normal Range LA ESV SP 4CH (A/L) 43.87 ml - LA ESV SP 2CH (A/L) 64.52 ml - LA ESV BP (A/L) 56.49 ml - LA ESV BP (A/L) index 27 ml/m2 - LA ESV SP 4CH (MOD) 42.74 ml - LA ESV SP 2CH (MOD) 60.84 ml - Name Value Normal Range MV E-wave Vmax 0.8 m/sec - MV deceleration time 176 msec - MV A-wave Vmax 1 m/sec - MV E:A ratio 0.8 ratio - P. vein S-wave Vmax 0.4 m/sec - P. vein D-wave Vmax 0.3 m/sec - P. vein S:D Vmax ratio 1.5 ratio - P. vein A-wave duration 83 msec - LV septal e' Vmax 0.06 m/sec - LV lateral e' Vmax 0.08 m/sec - LV E:e' septal ratio 13 ratio - LV E:e' lateral ratio 10 ratio - Name Value Normal Range AV Vmax 1.4 m/sec - AV VTI 28.1 cm - AV peak gradient 8 mmHg - AV mean gradient 3.5 mmHg - LVOT Vmax 0.9 m/sec - LVOT VTI 18 cm - LVOT peak gradient 3.2 mmHg - LVOT mean gradient 1.6 mmHg - CHANDLER Vmax 0.9 m/sec - Name Value Normal Range TR Vmax 2.2 m/sec - TR peak gradient 19 mmHg - RAP 3 mmHg - RVSP 22 mmHg - IVC diameter 1.7 cm - Name Value Normal Range PV Vmax 0.7 m/sec - PV peak gradient 2 mmHg -
--- NOTE | 2017-07-17 13:17 | PN ---
Work Excuse - Work Note Work Note: The above employee has been evaluated on 07/17/17. The physician has instructed the employee concerning further work as described below. Mrs. Stiles was admitted to our facility on 07/16/17 for an observation stay and was subsequently discharged to following day upon re-evaluation. 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 Work Status: [] Ye Lagos MD 07/17/[id number]
--- NOTE | 2017-07-17 23:02 | DS ---
CC: Dr. Smith; Dr. Antonio Balderrama; Dr. Yuliet Harper DISCHARGE SUMMARY: DATE OF ADMISSION: DATE OF DISCHARGE: DISCHARGE DIAGNOSES: Are as follows: 1. Atypical chest pain, noncardiac, likely secondary to musculoskeletal issue. 2. History of diabetes mellitus. 3. History of pulmonary embolism. HISTORY OF PRESENT ILLNESS/HOSPITAL COURSE: The patient is a 42-year-old obese lady with a history of diabetes and PE, who presented with reports of feeling malaise the day prior to admission. She mentioned that when she laid down, her cough had developed and at around 8/10 right-sided chest pressure radiating mildly to the back was initially reported, but this morning she mentioned that it did not radiate at all. She mentioned that she was given any nitroglycerin other than aspirin in the ED and she could not identify any alleviating or exacerbating factors. She denied any exacerbation of her pain on exertion and she denies any history of aspirin use in the last 7 days. She was ruled out for a PE with a D- dimer of less than 200. Her troponins were negative x3 and ruled out for ACS. The patient was diagnosed to likely have a musculoskeletal form of chest pain given above and the reproducibility of her chest pain on further evaluation especially this morning. She has been advised to follow up with her PCP within 3 days postdischarge and if any problems and/or questions that transpires that cannot be addressed by her PCP, she was advised to call our office and ask for continuation of care program. She was also advised to loose weight and to talk with her PCP regarding the safest matter to do so, and she was advised to take her medications as prescribed. She is to follow up with her PCP in 3 days postdischarge. She has also been given work excuse letter prior to her discharge. PHYSICAL EXAMINATION: Reveals a most recent vital signs of records with blood pressure of 125/71, saturating at 97% on room air, 88 beats per minute of heart rate, 20 per minute of respiratory rate. General Appearance: The patient is awake, alert, and oriented x3, not in acute distress. HEENT: Normocephalic, atraumatic. PERRLA. Extraocular muscles intact. Negative for icterus. Moist oral mucosa. Negative throat erythema. Neck is soft, supple with no cervical lymphadenopathy. No JVD. Heart: S1, S2 within normal limits. Regular rate and rhythm. No murmurs, rubs or gallops. Chest: Clear to auscultation bilaterally. Good air entry. No wheezes, rales or rhonchi. She has a tender at parasternal border on the right in which she mentions reproduces her chest pain on presentation. Abdomen is soft, nondistended, nontender. Normoactive bowel sounds x4. Extremities: No cyanosis, clubbing or edema. Psychiatric: No active psychosis, depression, suicidal or homicidal ideation. Skin is warm to touch. DISCHARGE MEDICATIONS: 1. Tylenol 650 p.o. q.6 p.r.n. 2. Ibuprofen 600 mg p.o. t.i.d. for 3 days, then every 8 hours p.r.n. thereafter. 3. Melatonin 5 mg p.o. q.h.s. 4. Metformin 1000 mg p.o. b.i.d. 5. Omeprazole 20 mg p.o. daily for 15 days. TIME SPENT: The total time spent evaluating the patient, reviewing pertinent data, and appropriate documentation is greater than 30 minutes. [id number]/[facility] #: [id number] MTDD
--- NOTE | 2017-07-22 09:44 | ED ---
Dennis Falk Stephanie, scribed for Antonio Balderrama MD on 07/16/17 at 1756 . HPI Chest Pain - HPI Summary HPI Summary: The pt is a 42 y/o F presenting to the ED with c/o CP that began at 16:00. Symptoms include MARK, nausea, dizziness and calf pain. The pt denies neck pain, fever, SOB and light sensitivity. Her CP is rated as an 8 in severity. The pt denies recent traveling. The pt reports that on 07/10/17 she had MARK and nausea. - History of Current Complaint Chief Complaint: EDChestPainROMI Time Seen by Provider: 07/16/17 17:43 Hx Obtained From: Patient Hx Last Menstrual Period: current Onset/Duration: Started Hours Ago - 2, Still Present Timing: Constant Current Severity: Moderate Pain Intensity: 8 Pain Scale Used: 0-10 Numeric Chest Pain Location: Diffuse Chest Pain Radiates: No Character: Pressure/Squeezing, Tightness Aggravating Factor(s): Nothing Alleviating Factor(s): Nothing Associated Signs and Symptoms: Positive: Chest Pain, Headaches, Dizziness, Nausea, Calf Pain/Swelling - pain - Allergy/Home Medications Allergies/Adverse Reactions: Allergies Allergy/AdvReac Type Severity Reaction Status Date / Time meperidine Allergy Intermediate Hallucinati Verified 07/16/17 17:31 ons hydromorphone Allergy Vomiting Verified 07/16/17 17:31 codeine AdvReac Mild Nausea Verified 07/16/17 17:31 morphine AdvReac Mild Nausea Verified 07/16/17 17:31 PMH/Surg Hx/FS Hx/Imm Hx Endocrine/Hematology History: Reports: Hx Diabetes - TYPE II- on oral medication for Denies: Hx Anticoagulant Therapy, Hx Bone Marrow Disease, Hx Sickle Cell Disease, Hx Thyroid Disease, Hx Anemia Cardiovascular History: Reports: Other Cardiovascular Problems/Disorders - PE/ DVT-2003 s/p arthroscopy of knee- states has had negative workup Denies: Hx Hypertension, Hx Pacemaker/ICD Respiratory History: Reports: Hx Pulmonary Embolism - 2003- Denies: Hx Asthma, Hx Chronic Obstructive Pulmonary Disease (COPD), Hx Sleep Apnea, Other Respiratory Problems/Disorders GI History: Reports: Hx Hiatal Hernia - STATES HAS NO PROBLEMS WITH Denies: Hx Crohn's Disease, Hx Gastroesophageal Reflux Disease, Hx Irritable Bowel, Hx Ulcer History: Reports: Hx Kidney Infection - HX OF X 1 IN THE PAST Denies: Hx Renal Disease, Other Problems/Disorders Musculoskeletal History: Reports: Hx Back Problems, Hx Orthopedic Injury, Hx Tendonitis - RIGHT ELBOW, Other Musculoskeletal History Denies: Hx Arthritis Sensory History: Reports: Hx Contacts or Glasses Denies: Hx Hearing Aid Opthamlomology History: Reports: Hx Contacts or Glasses Neurological History: Reports: Hx Migraine - monthly-treats excedrin migraine Denies: Hx Nerve Disease, Hx Seizures Psychiatric History: Denies: Hx Anxiety, Hx Depression, Hx Panic Disorder - Surgical History Surgery Procedure, Year, and Place: [id number]. LEFT KNEE ARTHROSCOPY - 2003 [facility]. T+A [facility]. APPENDIX- [facility]. LEFT POINTER FINGER TRIGGER- 2009 [facility], CARPAL TUNNEL LT WRIST 11/2012. [facility]&C [facility]. left trigger thumb Nov 2013. discectomy lumbar 2013. SALIVARY GLAND REMOVED 2014. 07/15/15 RIGHT ELBOW REATTACH TENDON Hx Anesthesia Reactions: Yes - GENERAL- EXTREME N/V-NO PROBLEMS WITH LAST GENERAL WITH DR. MORENO - Immunization History Date of Tetanus Vaccine: 2008 Date of Influenza Vaccine: Fall 2011 Infectious Disease History: No Infectious Disease History: Denies: Hx Clostridium Difficile, Hx Hepatitis, Hx Human Immunodeficiency Virus (HIV), Hx of Known/Suspected MRSA, Hx Shingles, Hx Tuberculosis, Hx Known/ Suspected VRE, Hx Known/Suspected VRSA, History Other Infectious Disease, Traveled Outside the [place] in Last 30 Days - Family History Known Family History: Negative: Renal Disease - Social History Occupation: Employed Full-time Lives: With Family Alcohol Use: None Hx Substance Use: No Substance Use Type: Reports: None Hx Tobacco Use: No Smoking Status (MU): Never Smoked Tobacco Have You Smoked in the Last Year: No Review of Systems Negative: Fever Negative: Photophobia Negative: Shortness Of Breath Positive: Nausea Musculoskeletal: Negative - neck pain Positive: Other - calf pain Neurological: Other - dizziness Positive: Headache All Other Systems Reviewed And Are Negative: Yes Physical Exam - Summary Physical Exam Summary: VITAL SIGNS: Reviewed. GENERAL: Patient is a well-developed and nourished FEMALE who is distressed secondary to CP. Patient is not in any acute respiratory distress. HEAD AND FACE: No signs of trauma. No ecchymosis, hematomas or skull depressions. No sinus tenderness. EYES: PERRLA, EOMI x 2, No injected conjunctiva, no nystagmus. EARS: Hearing grossly intact. Ear canals and tympanic membranes are within normal limits. MOUTH: Oropharynx within normal limits. NECK: Supple, trachea is midline, no adenopathy, no JVD, no carotid bruit, no c- spine tenderness, neck with full ROM. CHEST: Symmetric, no tenderness at palpation LUNGS: Clear to auscultation bilaterally. No wheezing or crackles. CVS: Regular rate and rhythm, S1 and S2 present, no murmurs or gallops appreciated. ABDOMEN: Soft, non-tender. No signs of distention. No rebound no guarding, and no masses palpated. Bowel sounds are normal. EXTREMITIES: FROM in all major joints, no edema, no cyanosis or clubbing. NEURO: Alert and oriented x 3. No acute neurological deficits. Speech is normal and follows commands. SKIN: Dry and warm Triage Information Reviewed: Yes Vital Signs On Initial Exam: Initial Vitals Temp Pulse Resp BP Pulse Ox 98 F 100 16 184/129 99 07/16/17 17:31 07/16/17 17:31 07/16/17 17:31 07/16/17 17:31 07/16/17 17:31 Vital Signs Reviewed: Yes Diagnostics - Vital Signs Vital Signs Temp Pulse Resp BP Pulse Ox 07/16/17 17:31 98 F 100 16 184/129 99 - Laboratory Lab Results: Lab Results 07/16/17 07/16/17 07/16/17 Range/Units 17:49 17:50 17:50 WBC 7.7 (3.5-10.8) 10^3/ul RBC 5.06 (4.0-5.4) 10^6/ul Hgb 13.5 (12.0-16.0) g/dl Hct 40 (35-47) % MCV 80 (80-97) fL MCH 27 (27-31) pg MCHC 34 (31-36) g/dl RDW 14 (10.5-15) % Plt Count 295 (150-450) 10^3/ul MPV 7.1 L (7.4-10.4) um3 Neut % (Auto) 62.6 (38-83) % Lymph % (Auto) 27.7 (25-47) % [place] % (Auto) 7.1 H (0-7) % Eos % (Auto) 1.8 (0-6) % Baso % (Auto) 0.8 (0-2) % Absolute Neuts (auto) 4.8 (1.5-7.7) 10^3/ul Absolute Lymphs (auto) 2.1 (1.0-4.8) 10^3/ul Absolute Monos (auto) 0.5 (0-0.8) 10^3/ul Absolute Eos (auto) 0.1 (0-0.6) 10^3/ul Absolute Basos (auto) 0.1 (0-0.2) 10^3/ul Absolute Nucleated RBC 0 10^3/ul Nucleated RBC % 0.1 D-Dimer, Quantitative < 200 (Less Than 230) ng/mL Sodium 136 L (139-145) mmol/L Potassium 3.6 (3.5-5.0) mmol/L Chloride 102 (101-111) mmol/L Carbon Dioxide 22 (22-32) mmol/L Anion Gap 12 H (2-11) mmol/L BUN 14 (6-24) mg/dL Creatinine 0.59 (0.51-0.95) mg/dL Est GFR ( Amer) 143.1 (>60) Est GFR (Non-Af Amer) 111.2 (>60) BUN/Creatinine Ratio 23.7 H (8-20) Glucose 190 H (70-100) mg/dL Lactic Acid (0.5-2.0) mmol/L Calcium 9.1 (8.6-10.3) mg/dL Magnesium 1.6 L (1.9-2.7) mg/dL Total Bilirubin 0.30 (0.2-1.0) mg/dL AST 12 L (13-39) U/L ALT 16 (7-52) U/L Alkaline Phosphatase 72 (34-104) U/L Total Creatine Kinase 48 (10-223) U/L CK-MB (CK-2) 1.4 (0.6-6.3) ng/mL Troponin I 0.00 (<0.04) ng/mL B-Natriuretic Peptide ( - 100) pg/mL Total Protein 7.0 (6.4-8.9) g/dL Albumin 3.8 (3.2-5.2) g/dL Globulin 3.2 (2-4) g/dL Albumin/Globulin Ratio 1.2 (1-3) TSH 2.61 (0.34-5.60) mcIU/mL 07/16/17 07/16/17 Range/Units 17:50 17:50 WBC (3.5-10.8) 10^3/ul RBC (4.0-5.4) 10^6/ul Hgb (12.0-16.0) g/dl Hct (35-47) % MCV (80-97) fL MCH (27-31) pg MCHC (31-36) g/dl RDW (10.5-15) % Plt Count (150-450) 10^3/ul MPV (7.4-10.4) um3 Neut % (Auto) (38-83) % Lymph % (Auto) (25-47) % [place] % (Auto) (0-7) % Eos % (Auto) (0-6) % Baso % (Auto) (0-2) % Absolute Neuts (auto) (1.5-7.7) 10^3/ul Absolute Lymphs (auto) (1.0-4.8) 10^3/ul Absolute Monos (auto) (0-0.8) 10^3/ul Absolute Eos (auto) (0-0.6) 10^3/ul Absolute Basos (auto) (0-0.2) 10^3/ul Absolute Nucleated RBC 10^3/ul Nucleated RBC % D-Dimer, Quantitative (Less Than 230) ng/mL Sodium (139-145) mmol/L Potassium (3.5-5.0) mmol/L Chloride (101-111) mmol/L Carbon Dioxide (22-32) mmol/L Anion Gap (2-11) mmol/L BUN (6-24) mg/dL Creatinine (0.51-0.95) mg/dL Est GFR ( Amer) (>60) Est GFR (Non-Af Amer) (>60) BUN/Creatinine Ratio (8-20) Glucose (70-100) mg/dL Lactic Acid 3.1 H* (0.5-2.0) mmol/L Calcium (8.6-10.3) mg/dL Magnesium (1.9-2.7) mg/dL Total Bilirubin (0.2-1.0) mg/dL AST (13-39) U/L ALT (7-52) U/L Alkaline Phosphatase (34-104) U/L Total Creatine Kinase (10-223) U/L CK-MB (CK-2) (0.6-6.3) ng/mL Troponin I (<0.04) ng/mL B-Natriuretic Peptide 19 ( - 100) pg/mL Total Protein (6.4-8.9) g/dL Albumin (3.2-5.2) g/dL Globulin (2-4) g/dL Albumin/Globulin Ratio (1-3) TSH (0.34-5.60) mcIU/mL Result Diagrams: 07/16/17 17:50 07/16/17 21:07 Lab Statement: Any lab studies that have been ordered have been reviewed, and results considered in the medical decision making process. - Radiology CXR Xray Interpretation: No Acute Changes Radiology Interpretation Completed By: Radiologist - Normal chest. ED physician has reviewed this report. - EKG 17:28 Cardiac Rate: NL EKG Rhythm: Sinus Rhythm - [address] Segment: Normal Ectopy: None EKG Interpretation: No ST elevations Chest Pain Course/Dx - Course Assessment/Plan: Blood test results with no significant abnormality. EKG without any ST elevations. Chest x-ray impression: No acute pathology. Because of the patient's symptom presentations and comorbidities I discussed the case with Dr. Smith who accepted the patient for admission to rule out acute coronary syndrome. Patient is hemodynamically stable alert and oriented 3 - Diagnoses Provider Diagnoses: Chest pain, Uncontrolled hypertension, Ruled out for myocardial infarction - Provider Notifications Discussed Care Of Patient With: Jason Smith Time Discussed With Above Provider: 20:09 Instructed by Provider To: Admit As Inpatient Discharge - Sign-Out/Discharge Documenting (check all that apply): Discharge/Admit/Transfer - Admit - Discharge Plan Condition: Stable Disposition: ADMITTED TO [facility] - Billing Disposition and Condition Condition: STABLE Disposition: [facility] [place] The documentation as recorded by the Dennis roberts Stephanie accurately reflects the service I personally performed and the decisions made by , Antonio Balderrama MD.
== END 2017-07-17 13:24 | disposition home or self-care (01) ==
LOC: ED 17:23 → MEDTELE 20:02
PROVIDERS: ADMIT Hospitalist; ATTEND Student in an Organized Health Care Education/Training Program
DX: R07.89 Other chest pain (principal); M51.34 Other intervertebral disc degeneration, thoracic region; E11.9 Type 2 diabetes mellitus without complications; Z86.711 Personal history of pulmonary embolism; R05 Cough
CPT/HCPCS: 36415; 71045; 80053; 82550; 82553; 82565; 83605; 83735; 83880; 84443; 84484; 84520; 85025; 85379; 85610; 85730; 87641; 93005; 93306; 96365; 96375; 99284; A9270-GY; C8929; J1644; J3475

== ENCOUNTER 2018-03-11 15:42 | Emergency (ER) | payer BC ==
[2018-03-11] MEDS ORDERED: NS 0.9% 1000 ML* 1,000 ML IV ONE (15:59)
[2018-03-11] MEDS ORDERED: Metoclopramide IV* 5 MG/ML 2 ML VIAL IV ONE (16:06)
[2018-03-11] MEDS ORDERED: diPHENhydraMINE PO* 50 MG PO ONE (16:06)
[2018-03-11] MEDS ORDERED: Ketorolac INJ* 30 MG/ML 1 ML VIAL IV ONE (16:06)
[2018-03-11 16:21] LABS: ABS Basophils 0 10^3/ul (0-0.2); ABS Eosinophils 0 10^3/ul (0-0.6); ABS Lymphocytes 0.8 10^3/ul (1.0-4.8); ABS Monocytes 0.4 10^3/ul (0-0.8); ABS Neutrophils 4.5 10^3/ul (1.5-7.7); ABS Nucleated RBC 0 10^3/ul; Eosinophil % 0.4 %; Hematocrit 42 % (35-47); Hemoglobin 14.3 g/dl (12.0-16.0); Lymphocyte % 13.5 %; Mean Corpuscular HGB Conc 34 g/dl (31-36); Mean Corpuscular Hemoglobin 27 pg (27-31); Mean Corpuscular Volume 79 fL (80-97); Nucleated Red Blood Cells % 0; Platelet Count 225 10^3/ul (150-450); Red Blood Count 5.27 10^6/ul (4.00-5.40); Red Cell Distribution Width 15 % (10.5-15); White Blood Count 5.7 10^3/ul (3.5-10.8)
[2018-03-11 16:34] LABS: Albumin 3.9 g/dL (3.2-5.2); Albumin/Globulin Ratio 1.2 (1-3); C Reactive Protein 19.12 mg/L (<8.01); Calcium 8.9 mg/dL (8.6-10.3); EGFR Non-African American 122.6 (>60); Globulin 3.3 g/dL (2-4); Potassium 4.2 mmol/L (3.5-5.0); Total Bilirubin 0.3 mg/dL (0.2-1.0); Total Protein 7.2 g/dL (6.4-8.9)
--- NOTE | 2018-03-11 17:15 | ED ---
Influenza-Like Illness - HPI Summary HPI Summary: Patient complains of MARK, body aches, lightheadedness, nausea and vomiting starting yesterday. Patient went to 5 started today and tested positive for flu a, started on Tamiflu. Patient went home, and states she has been unable to control headache. Denies fever, neck stiffness, cough, sore throat, CP, SOB , abdominal pain, change in urine, change in BM. Medical history is DM, GERD. Patient has elevated blood pressure in triage. Patient states no history of hypertension, but states she her blood pressure elevates significantly when ill. Patient has been evaluated multiple times by primary care for this phenomenon without a diagnosis of hypertension. - History of Current Complaint Chief Complaint: EDFluSymptoms Time Seen by Provider: 03/11/18 15:56 Hx Obtained From: Patient Onset/Duration: Gradual Onset, Lasting Days Severity: Moderate Associated Signs & Symptoms: Myalgia, Headache, Vomiting - Allergy/Home Medications Allergies/Adverse Reactions: Allergies Allergy/AdvReac Type Severity Reaction Status Date / Time meperidine Allergy Intermediate Hallucinati Verified 03/11/18 16:24 ons hydromorphone Allergy Vomiting Verified 03/11/18 16:24 codeine AdvReac Mild Nausea Verified 03/11/18 16:24 morphine AdvReac Mild Nausea Verified 03/11/18 16:24 PMH/Surg Hx/FS Hx/Imm Hx Endocrine/Hematology History: Reports: Hx Diabetes - TYPE II- on oral medication for Denies: Hx Anticoagulant Therapy, Hx Bone Marrow Disease, Hx Sickle Cell Disease, Hx Thyroid Disease, Hx Anemia Cardiovascular History: Reports: Other Cardiovascular Problems/Disorders - PE/ DVT-2003 s/p arthroscopy of knee- states has had negative workup Denies: Hx Hypertension, Hx Pacemaker/ICD Respiratory History: Reports: Hx Pulmonary Embolism - 2003- Denies: Hx Asthma, Hx Chronic Obstructive Pulmonary Disease (COPD), Hx Sleep Apnea, Other Respiratory Problems/Disorders GI History: Reports: Hx Hiatal Hernia - STATES HAS NO PROBLEMS WITH Denies: Hx Crohn's Disease, Hx Gastroesophageal Reflux Disease, Hx Irritable Bowel, Hx Ulcer History: Reports: Hx Kidney Infection - HX OF X 1 IN THE PAST Denies: Hx Renal Disease, Other Problems/Disorders Musculoskeletal History: Reports: Hx Back Problems, Hx Orthopedic Injury, Hx Tendonitis - RIGHT ELBOW, Other Musculoskeletal History Denies: Hx Arthritis Sensory History: Reports: Hx Contacts or Glasses Denies: Hx Hearing Aid Opthamlomology History: Reports: Hx Contacts or Glasses Neurological History: Reports: Hx Migraine - monthly-treats excedrin migraine Denies: Hx Nerve Disease, Hx Seizures Psychiatric History: Denies: Hx Anxiety, Hx Depression, Hx Panic Disorder - Cancer History Hx Chemotherapy: No Hx Radiation Therapy: No - Surgical History Surgery Procedure, Year, and Place: [id number]. LEFT KNEE ARTHROSCOPY - 2003 [facility]. T[facility]A [facility] APPENDIX- [facility]. LEFT POINTER FINGER TRIGGER- 2009 [facility], CARPAL TUNNEL LT WRIST 11/2012. [facility]. left trigger thumb Nov 2013. discectomy lumbar 2013. SALIVARY GLAND REMOVED 2014. 07/15/15 RIGHT ELBOW REATTACH TENDON Hx Anesthesia Reactions: Yes - GENERAL- EXTREME N/V-NO PROBLEMS WITH LAST GENERAL WITH DR. MORENO - Immunization History Date of Tetanus Vaccine: 2008 Date of Influenza Vaccine: Fall 2011 Infectious Disease History: No Infectious Disease History: Denies: Hx Clostridium Difficile, Hx Hepatitis, Hx Human Immunodeficiency Virus (HIV), Hx of Known/Suspected MRSA, Hx Shingles, Hx Tuberculosis, Hx Known/ Suspected VRE, Hx Known/Suspected VRSA, History Other Infectious Disease, Traveled Outside the [place] in Last 30 Days - Family History Known Family History: Positive: None Negative: Renal Disease - Social History Alcohol Use: None Hx Substance Use: No Substance Use Type: Reports: None Hx Tobacco Use: No Smoking Status (MU): Never Smoked Tobacco Have You Smoked in the Last Year: No Review of Systems Constitutional: Negative Eyes: Negative ENT: Negative Cardiovascular: Negative Respiratory: Negative Positive: Vomiting, Nausea Genitourinary: Negative Positive: Myalgia Skin: Negative Positive: Headache Psychological: Normal All Other Systems Reviewed And Are Negative: Yes Physical Exam Triage Information Reviewed: Yes Vital Signs On Initial Exam: Initial Vitals Temp Pulse Resp BP Pulse Ox 98.2 F 94 16 180/118 97 03/11/18 15:45 03/11/18 15:45 03/11/18 15:45 03/11/18 15:45 03/11/18 15:45 Vital Signs Reviewed: Yes Appearance: Positive: Well-Appearing Skin: Positive: Warm Head/Face: Positive: Normal Head/Face Inspection Eyes: Positive: Normal ENT: Positive: Normal ENT inspection Neck: Positive: Supple Respiratory/Lung Sounds: Positive: Clear to Auscultation Cardiovascular: Positive: Normal Abdomen Description: Positive: Nontender Musculoskeletal: Positive: Normal Neurological: Positive: Normal Psychiatric: Positive: Normal AVPU Assessment: Alert - Madeleine Coma Scale Best Eye Response: 4 - Spontaneous Best Motor Response: 6 - Obeys Commands Best Verbal Response: 5 - Oriented Coma Scale Total: 15 Diagnostics - Vital Signs Vital Signs Temp Pulse Resp BP Pulse Ox 03/11/18 16:30 97 99 03/11/18 15:45 98.2 F 94 16 180/118 97 - Laboratory Lab Results: Lab Results 03/11/18 03/11/18 03/11/18 Range/Units 15:19 15:19 15:19 WBC 5.7 (3.5-10.8) 10^3/ul RBC 5.27 (4.00-5.40) 10^6/ul Hgb 14.3 (12.0-16.0) g/dl Hct 42 (35-47) % MCV 79 L (80-97) fL MCH 27 (27-31) pg MCHC 34 (31-36) g/dl RDW 15 (10.5-15) % Plt Count 225 (150-450) 10^3/ul MPV 7.0 L (7.4-10.4) fL Neut % (Auto) 78.6 % Lymph % (Auto) 13.5 % [place] % (Auto) 7.0 % Eos % (Auto) 0.4 % Baso % (Auto) 0.5 % Absolute Neuts (auto) 4.5 (1.5-7.7) 10^3/ul Absolute Lymphs (auto) 0.8 L (1.0-4.8) 10^3/ul Absolute Monos (auto) 0.4 (0-0.8) 10^3/ul Absolute Eos (auto) 0 (0-0.6) 10^3/ul Absolute Basos (auto) 0 (0-0.2) 10^3/ul Absolute Nucleated RBC 0 10^3/ul Nucleated RBC % 0 Sodium 136 (135-145) mmol/L Potassium 4.2 (3.5-5.0) mmol/L Chloride 104 (101-111) mmol/L Carbon Dioxide 24 (22-32) mmol/L Anion Gap 8 (2-11) mmol/L BUN 7 (6-24) mg/dL Creatinine 0.54 (0.51-0.95) mg/dL Est GFR ( Amer) 148.4 (>60) Est GFR (Non-Af Amer) 122.6 (>60) BUN/Creatinine Ratio 13.0 (8-20) Glucose 238 H (70-100) mg/dL Lactic Acid 1.5 (0.5-2.0) mmol/L Calcium 8.9 (8.6-10.3) mg/dL Total Bilirubin 0.30 (0.2-1.0) mg/dL AST 13 (13-39) U/L ALT 18 (7-52) U/L Alkaline Phosphatase 72 (34-104) U/L C-Reactive Protein 19.12 H (<8.01) mg/L Total Protein 7.2 (6.4-8.9) g/dL Albumin 3.9 (3.2-5.2) g/dL Globulin 3.3 (2-4) g/dL Albumin/Globulin Ratio 1.2 (1-3) Result Diagrams: 03/11/18 15:19 03/11/18 15:19 Lab Statement: Any lab studies that have been ordered have been reviewed, and results considered in the medical decision making process. Flu Symptom Course/Dx - Course Course Of Treatment: Patient complains of MARK, body aches, lightheadedness, nausea and vomiting starting yesterday. Patient went to 5 started today and tested positive for flu a, started on Tamiflu. Patient went home, and states she has been unable to control headache. Denies fever, neck stiffness, cough, sore throat, CP, SOB, abdominal pain, change in urine, change in BM. Medical history is DM, GERD. Patient has elevated blood pressure in triage. Patient states no history of hypertension, but states she her blood pressure elevates significantly when ill. Patient has been evaluated multiple times by primary care for this phenomenon without a diagnosis of hypertension. Physical exam unremarkable. Vital signs within normal limits. BGL 238. Labs otherwise unremarkable. Headache controlled with migraine cocktail. Patient states she is ready to go home. Continue the Tamiflu. - Diagnoses Provider Diagnoses: Flu, Headache Discharge - Sign-Out/Discharge Documenting (check all that apply): Patient Departure - Discharge Plan Condition: Stable Disposition: HOME Prescriptions: Ondansetron ODT TAB* [Zofran 4 MG Odt TAB*] 4 mg PO Q8H PRN 4 Days #14 tab.odt PRN Reason: Nausea Patient Education Materials: Influenza (ED), Acute Headache (ED) Referrals: Yuliet Harper MD [Primary Care Provider] - Additional Instructions: Continue taking Tamiflu. Follow-up with primary care. Return to the ED for any new or worsening symptoms - Billing Disposition and Condition Condition: STABLE Disposition: Home
[2018-03-11 17:33] VITALS: BP 159/106
== END 2018-03-11 17:32 | disposition home or self-care (01) ==
LOC: ED 15:42
DX: J10.1 Influenza due to other identified influenza virus with other respiratory manifestations (principal); R51 Headache; E11.9 Type 2 diabetes mellitus without complications; Z79.84 Long term (current) use of oral hypoglycemic drugs; Z88.5 Allergy status to narcotic agent; Z86.718 Personal history of other venous thrombosis and embolism
CPT/HCPCS: 36415; 71046; 80053; 83605; 85025; 86140; 96374; 96375; 99283; A9270-GY; J1885; J2765

== ENCOUNTER 2018-09-05 06:41 | Emergency (ER) | payer BC ==
--- OUTSIDE RECORDS SUMMARY | 2018-09-05 06:55 | XMS REPORT | Continuity of Care Document ---
:1975 External Reference #:[id number] Author Name Morelia Rosales Care Team Providers Name Role Phone Yuliet Harper MD Primary Care Physician Unavailable Payers Date Identification Numbers Payment Provider Subscriber Policy Number: [id number] [employer] Parker Mukherjee PayID: [id number] [address] [address] [place] [address] Onset: 2012 Policy Number: [id number] [place] [employer] Parker Mukherjee PayID: [id number] [facility] [address] [place] [address] Problems Active Problems Provider Date Lumbosacral spondylosis without myelopathy Heather Castellanos MD Onset: Displacement of lumbar intervertebral disc Heather Castellanos MD Onset: without myelopathy Mononeuropathy of lower limb Yehuda Huang MD Onset: 04/20/2018 Contusion of ankle Yehuda Huang MD Onset: 04/20/2018 Trochanteric bursitis Hazel Lewis M.D. Onset: 11/08/2017 Localized, primary osteoarthritis of the Hazel Lewis M.D. 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 Tobacco Use Start: Unknown Never Smoked Cigarettes Smoking Status Reviewed: 08/06/18 Never Smoked Cigarettes ETOH Use Denies alcohol use Tobacco Use Start: Unknown Patient has never smoked Recreational Drug Use Denies Drug Use Exercise Type/Frequency Exercises regularly Allergies, Adverse Reactions, Alerts Active Allergies Reaction Severity Comments Date Morphine hallucinations 09/05/2012 Demerol Nausea and Vomiting 09/05/2012 Dilaudid Nausea and Vomiting 09/05/2012 Codeine Nausea and Vomiting 02/14/2014 Medications Active Medications SIG Qnty Indications Ordering Provider Date Metformin HCL 1 by mouth twice Unknown 500mg Tablets a day History Medications Meloxicam 1 by mouth 30tabs M25.552 Hazel Lewis M.D. 11/08/2017 - 15mg every day 04/19/2018 Tablets Augmentin take 1 by mouth 28tabs Renetta Pearson, 01/12/2016 - twice a day for M.D. 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 03/23/2015 Injection Depjose franciscorol 40MG Renetta Pearson M.D. 12/10/2014 Injection Depjose franciscorol 40MG Renetta Pearson M.D. 06/26/2013 Injection Depomedrol 40MG Renetta Pearson M.D. 06/26/2013 Injection Depomedrol 80MG Renetta Pearson M.D. 10/30/2012 Injection Vital Signs Date Vital Result Comment 08/06/2018 3:48pm Height 62.25 inches 5'2.25" Weight 206.50 lb Heart Rate 99 /min BP Systolic 149 mmHg BP Diastolic 102 mmHg O2 % BldC Oximetry 97 % BMI (Body Mass Index) 37.5 kg/m2 Last Menstrual Period [id number] 04/20/2018 8:01am Height 62.25 inches 5'2.25" Weight 204.00 lb BP Systolic 136 mmHg BP Diastolic 92 mmHg Respiratory Rate 15 /min Body Temperature 98.1 F Pain Level 7 BMI (Body Mass Index) 37.0 kg/m2 11/08/2017 8:25am Height 62.25 inches 5'2.25" Weight 208.00 lb Heart Rate 80 /min BP Systolic 132 mmHg BP Diastolic 88 mmHg BMI (Body Mass Index) 37.7 kg/m2 08/22/2017 3:04pm Height 62 inches 5'2" Weight 208.00 lb Heart Rate 94 /min BP Systolic 124 mmHg BP Diastolic 88 mmHg O2 % BldC Oximetry 98 % BMI (Body Mass Index) 38.0 kg/m2 Last Menstrual Period [id number] 04/28/2017 9:07am Height 62 inches 5'2" Weight 198.00 lb BP Systolic Sitting 126 mmHg BP Diastolic Sitting 98 mmHg Pain Level 1 BMI (Body Mass Index) 36.2 kg/m2 03/29/2017 9:05am Height 62 inches 5'2" Weight 198.00 lb Heart Rate 82 /min BP Systolic Sitting 144 mmHg BP Diastolic Sitting 92 mmHg Body Temperature 97.0 F Pain Level 2 BMI (Body Mass Index) 36.2 kg/m2 03/15/2017 2:43pm Height 62 inches 5'2" Weight 198.00 lb Heart Rate 121 /min BP Systolic Sitting 144 mmHg BP Diastolic Sitting 84 mmHg Pain Level 8 BMI (Body Mass Index) 36.2 kg/m2 02/15/2017 2:13pm Height 62 inches 5'2" Weight 198.00 lb Heart Rate 72 /min BP Systolic Sitting 110 mmHg BP Diastolic Sitting 78 mmHg Pain Level 4 BMI (Body Mass Index) 36.2 kg/m2 10/27/2016 7:58am Height 62 inches 5'2" Weight 198.00 lb Heart Rate 76 /min BP Systolic 138 mmHg BP Diastolic 90 mmHg Body Temperature 97.3 F BMI (Body Mass Index) 36.2 kg/m2 09/26/2016 1:18pm Heart Rate 76 /min Respiratory Rate 16 /min Body Temperature 98.8 F 08/29/2016 3:02pm Heart Rate 84 /min BP Systolic 142 mmHg BP Diastolic 84 mmHg Respiratory Rate 16 /min Body Temperature 97.8 F 07/26/2016 3:31pm Height 62 inches 5'2" Weight 198.00 lb Respiratory Rate 16 /min Body Temperature 97.4 F Pain Level 3 BMI (Body Mass Index) 36.2 kg/m2 07/20/2016 10:17am Height 62 inches 5'2" Weight 198.00 lb Heart Rate 76 /min BP Systolic 130 mmHg BP Diastolic 78 mmHg Respiratory Rate 16 /min Body Temperature 99.0 F BMI (Body Mass Index) 36.2 kg/m2 06/28/2016 1:36pm Height 62 inches 5'2" Weight 200.00 lb Heart Rate 85 /min BP Systolic Sitting 158 mmHg BP Diastolic Sitting 92 mmHg Respiratory Rate 14 /min Body Temperature 97.9 F Pain Level 6 BMI (Body Mass Index) 36.6 kg/m2 06/21/2016 1:36pm Height 62 inches 5'2" Weight 201.00 lb Heart Rate 90 /min BP Systolic 156 mmHg BP Diastolic 94 mmHg Respiratory Rate 17 /min Pain Level 7 BMI (Body Mass Index) 36.8 kg/m2 01/18/2016 9:23am Height 62 inches 5'2" Weight 204.00 lb per pt Respiratory Rate 16 /min Pain Level 2 BMI (Body Mass Index) 37.3 kg/m2 03/23/2015 10:21am Height 62 inches 5'2" Weight 212.00 lb Pain Level 10 BMI (Body Mass Index) 38.8 kg/m2 12/10/2014 3:53pm Height 62 inches 5'2" Weight 212.00 lb Heart Rate 76 /min BP Systolic Sitting 122 mmHg BP Diastolic Sitting 80 mmHg BMI (Body Mass Index) 38.8 kg/m2 08/11/2014 10:01am Height 62 inches 5'2" Weight 210.00 lb Pain Level 6 BMI (Body Mass Index) 38.4 kg/m2 04/28/2014 3:20pm Height 62 inches 5'2" Weight 151.00 lb Heart Rate 84 /min BP Systolic Sitting 122 mmHg BP Diastolic Sitting 78 mmHg Pain Level 0 BMI (Body Mass Index) 27.6 kg/m2 03/17/2014 9:42am Height 62 inches 5'2" Weight 215.00 lb Heart Rate 78 /min BP Systolic Sitting 126 mmHg BP Diastolic Sitting 80 mmHg Pain Level 1 L leg BMI (Body Mass Index) 39.3 kg/m2 03/04/2014 3:18pm Height 62 inches 5'2" Weight 214.00 lb Heart Rate 82 /min BP Systolic Sitting 140 mmHg BP Diastolic Sitting 90 mmHg Pain Level 2 back/darryn leg BMI (Body Mass Index) 39.1 kg/m2 02/14/2014 2:21pm Height 62 inches 5'2" Weight 216.00 lb Heart Rate 96 /min BP Systolic Sitting 140 mmHg BP Diastolic Sitting 90 mmHg Pain Level 8 back/r leg BMI (Body Mass Index) 39.5 kg/m2 02/03/2014 10:53am Heart Rate 78 /min BP Systolic Sitting 126 mmHg BP Diastolic Sitting 82 mmHg 01/13/2014 11:12am Heart Rate 76 /min BP Systolic Sitting 122 mmHg BP Diastolic Sitting 80 mmHg 01/06/2014 10:40am Height 62 inches 5'2" Weight 215.00 lb Body Temperature 98.3 F BMI (Body Mass Index) 39.3 kg/m2 12/04/2013 3:58pm Heart Rate 82 /min BP Systolic Sitting 130 mmHg BP Diastolic Sitting 78 mmHg 06/26/2013 4:19pm Heart Rate 88 /min BP Systolic Sitting 132 mmHg BP Diastolic Sitting 82 mmHg 12/10/2012 8:38am Height 62 inches 5'2" Weight 232.00 lb Heart Rate 88 /min BP Systolic Sitting 130 mmHg BP Diastolic Sitting 80 mmHg BMI (Body Mass Index) 42.4 kg/m2 09/05/2012 2:22pm Height 62 inches 5'2" Weight 225.00 lb Heart Rate 82 /min BP Systolic Sitting 124 mmHg BP Diastolic Sitting 80 mmHg BMI (Body Mass Index) 41.1 kg/m2 Results Test Date Facility Test Result H/L Range Note Laboratory test 03/23/2017 [facility] 284 mg/dL High 70-100 [address] [place] [id number] [phone] Laboratory test 03/23/2017 [facility] 190 mg/dL High 70-[address] [place] [address] [phone] CBC No Diff 03/20/2017 [facility] White Blood 5.6 10^3/uL N 3.5-10.8 3 [address] [place] [address] [phone] Red Blood Count 5.06 10^6/uL N 4.0-5.4 Hemoglobin 14.1 g/dL N 12.0-16.0 Hematocrit 41 % N 35-47 Mean Corpuscular Volume 80 fL N 80-97 Mean Corpuscular Hemoglobin 28 pg N 27-31 Mean Corpuscular HGB Conc 35 g/dL N 31-36 Red Cell Distribution Width 14 % N 10.5-15 Platelet Count 275 10^3/uL N 150-450 Mean Platelet Volume 7 um3 Low 7.4-10.4 Type & Screen 03/20/2017 [facility] Patient Blood Type B Positive [address] [place] [address] [phone] Antibody Screen NEGATIVE Laboratory test 03/20/2017 [facility] HCG < 0.60 mIU/ mL 4 [place] [address] [phone] TSH (Thyroid Stim Horm) 1.62 mcIU/mL N 0.34-5.60 5 Inr/Protime 03/20/2017 [facility] Inr 0.86 N 0.77-1.[address] [place] [address] [phone] Laboratory test 03/20/2017 [facility] Partial 28.0 seconds N 26.0-36.[address] [place] [address] PTT [phone] Laboratory test 09/13/2016 [facility] Cytology SEE RESULT [address] Non-Business [place] [address] [phone] Comp Metabolic 02/11/2014 [facility] Sodium 134 mmol/L N 133- [address] [place] [address] [phone] Potassium 3.6 mmol/L N 3.5-5.0 Chloride 100 mmol/L Low 101-111 Co2 Carbon Dioxide 24 mmol/L N 22-32 Anion Gap 10 mmol/L N 2-11 Glucose 225 mg/dL High 70-100 Blood Urea Nitrogen 10 mg/dL N 6-24 Creatinine 0.52 mg/dL N 0.51-0.95 BUN/Creatinine Ratio 19.2 N 8-20 Calcium 9.8 mg/dL N 8.6-10.3 Total Protein 7.6 g/dL N 6.4-8.9 Albumin 4.0 g/dL N 3.2-5.2 Globulin 3.6 g/dL N 2-4 Albumin/Globulin Ratio 1.1 N 1-3 Total Bilirubin 0.40 mg/dL N 0.2-1.0 Alkaline Phosphatase 73 U/L N 34-104 Alt 79 U/L High 7-52 Ast 50 U/L High 13-39 Egfr Non- 130.6 N >60 Egfr 168.0 N >60 8 CBC Auto Diff 02/11/2014 [facility] White Blood 7.1 10^3/uL N 4.8-10.[address] [place] [address] [phone] Red Blood Count 4.91 10^6/uL N 4.0-5.4 Hemoglobin 14.2 g/dL N 12.0-16.0 Hematocrit 41 % N 35-47 Mean Corpuscular Volume 83 fL N 80-97 Mean Corpuscular Hemoglobin 29 pg N 27-31 Mean Corpuscular HGB Conc 35 g/dL N 31-36 Red Cell Distribution Width 13 % N 10.5-15 Platelet Count 249 10^3/uL N 150-450 Mean Platelet Volume 8 um3 N 7.4-10.4 Abs Neutrophils 4.5 10^3/uL N 1.5-7.7 Abs Lymphocytes 1.9 10^3/uL N 1.0-4.8 Abs Monocytes 0.6 10^3/uL N 0-0.8 Abs Eosinophils 0.1 10^3/uL N 0-0.6 Abs Basophils 0 10^3/uL N 0-0.2 Abs Nucleated RBC 0.01 10^3/uL N Granulocyte % 62.7 % N 38-83 Lymphocyte % 27.2 % N 25-47 Monocyte % 7.8 % N 1-9 Eosinophil % 1.6 % N 0-6 Basophil % 0.7 % N 0-2 Nucleated Red Blood Cells % 0.1 N Laboratory test 12/18/2013 [facility] Coagulation 164 % Abnormal 55 - [address] Factor XI 150 [place] [address] [phone] Factor 8 12/18/2013 [facility] Coagulation 185 % N 55 - Profile [address] Factor VIII 200 [place] [address] Activi [phone] von Willebrand Factor Antigen 170 % N 55 - 200 VonWillibrand Factor Activity 124 % N 55 - 200 von Willebrand Panel Interp See Comment N 10 von Willebrand Panel Reviewed Josef Alvarenga <SEE NOTE> N 11 Von Willibrand Factor Multimer See Comment N 12 Special Coag Interp Performed N 13 Laboratory test finding 12/18/2013 [facility] Inr 0.82 Low 0.85-1.[address] [place], [place] [id number] [phone] Activated Partial Thrombo Time 29.0 seconds N 24.0-36.1 Fibrinogen 401 mg/dL N 110.8-404.3 Laboratory test 12/25/2012 [facility] Protein C 152 % Abnormal 70 - 150 [address] [place] [address] [phone] Protein C Antigen 119 % 70-150 15 Protein S Activity 114 % 50 - 160 16 Protein S Antigen 136 % 50 - 160 17 Cardiolipin 12/25/2012 [facility] Cardiolipin IgG 4.6 GPL 18 Igg,Igm,Iga AB [address] [place], [place] [address] [phone] Cardiolipin IgM <4.0 MPL 19 Cardiolipin IgA <4.0 APL 20 Factor 5 Leiden 12/25/2012 [facility] Factor V Leiden Negative Negative Mutation [address] Mutation [place], [place] [id number] [phone] Factor V Leiden Interpretation See Comment 21 Factor V Leiden Reviewed By See Comment 22 Lupus 12/25/2012 [facility] Prothrombin 9.5 sec Abnormal 23 Anticoagulant AB [address] Time(Lac) [place], [place] [id number] [phone] Lac Inr 0.9 Lac Aptt 29 sec 26 - 36 Lac DRVVT Screen Ratio 0.9 ratio 0.0 - 1.1 Lupus Anticoagulant Interpreta See Comment 24 Laboratory test 12/25/2012 [facility] Activated 29.9 24.0- 36.[address] [place] [address] Thrombo Time [phone] Thrombin III Antigen 112 % 80 - 130 26 1 Vertical Punch Operator: [id number] 2 Vertical Punch Operator: [id number] 3 AA 03/23 4 <5.0 Negative 5.0 - 25.0 Indeterminate (Repeat testing recommended after 72 hours) >25.0 Positive Perimenopausal women can display HCG levels of up to 20 mIU/mL 5 AA 03/23 6 AA 03/23 7 SEE RESULT BELOW Name: PARKER MUKHERJEE : [address]: Karena Jones MD Acct: [id number] Unit: [id number] AGE: 41 Location: LAB Re09/13/16 SEX: F Status: REG REF SPEC: [id number] VINNY: 09/13/16-1445 [facility] DR: Karena Jones MD REQ: [id number] RECD: 09/13/16 STATUS: JOSELO DEJESUS DR: Harvey Harper MD _ ORDERED: FNA INTERP RPT, FNA BY PALP, CYTO ADEQ-1ST P FINAL DIAGNOSIS Breast, right, fine needle aspiration by palpation: --Benign - connective tissue with features of fat necrosis. -- No glandular epithelial elements are identified. -- No evidence of atypia or neoplasia identified. Comment: The aspirate smears are amply cellular demonstrating scattered benign reactive appearing fibroconnective and fibroadipose tissue fragments with associated chronic inflammatory elements including lipophages. No evidence of neoplasia is identified. The findings are most indicative of a benign reactive connective tissue focus and are compatible with the clinical history suggesting a ruptured cyst in this region. Findings are compatible with the current physical exam. The combined interpretative and sampling false-negative rate in this clinical setting is less than 2%. Correlation with imaging findings and appropriate clinical follow-up suggested. The procedure was explained to and understood by the patient. Signed consent was obtained and a time out procedure was performed at the bedside to verify patient identity and biopsy site. Fine needle aspiration biopsy was performed times 2 with a 25 gauge needle on approximate 1.5 cm longitudinally oriented soft, mobile subcutaneous soft tissue ridge at approximately 11:00, 12 cm from the areolar rim Adequacy was assessed by fast stain technique. The procedure was tolerated CONTINUED ON NEXT PAGE * ML=Testing performed at Main Lab DEPARTMENT OF PATHOLOGY, [address] [place] [address] Harvey Rios M.D. Director [facility] # [id number] RUN DATE: 09/14/16 [facility] LAB LIVE PAGE 2 Patient: PARKER MUKHERJEE [id number] (Continued) SPECIMEN COMMENTS (Continued) well without complications. BREAST RIGHT - RIGHT BREAST FINE NEEDLE ASPIRATION CLINICAL HISTORY 1.5 cm ridge mobile soft tissue, right breast at 11 o'clock 12 cm from areola. IMMEDIATE INTERPRETATION Pass 1 2-adequate GROSS DESCRIPTION Fine needle aspiration by palpation x 2 passes with 6 Alcohol fixed slide(s) , 2 Air dried slide(s).and Needle rinse in CytoLyt solution for thin layer non-decal maker test.( clear/light pink) Signed (signature on file) Harvey Rios MD 1427 END OF REPORT * ML=Testing performed at [facility] DEPARTMENT OF PATHOLOGY, [address] [place] [address] Harvey Rios M.D. Director [facility] # [id number] 8 Because ethnic data is not always readily available, this report includes an eGFR for both -Americans and non- Americans. The National Kidney Disease Education Program (NKDEP) does not endorse the use of the MDRD equation for patients that are not between the ages of 18 and 70, are , have extremes of body size, muscle mass, or nutritional status, or are non- or non-. According to the National Kidney Foundation, irrespective of diagnosis, the stage of the disease is based on the level of kidney function: Stage Description GFR(mL/min/1.73 m(2)) 1 Kidney damage with normal or decreased GFR 90 2 Kidney damage with mild decrease in GFR 60-89 3 Moderate decrease in GFR 30-59 4 Severe decrease in GFR 15-29 5 Kidney failure <15 (or dialysis) 9 Test Performed by: [address] [address] Train Clerk: Anshul Diop M.D. 10 IMPRESSION: No evidence of von Willebrand disease (VWD). See comments. COMMENTS: Normal factor VIII activity, von Willebrand factor (VWF) antigen, and VWF activity. No evidence of von Willebrand disease (VWD). The distribution of plasma von Willebrand factor (VWF) multimers is normal. Elevated factor XI activity is of no known clinical significance. 11 Alyssa Raymundo M.D. Test Performed by: [place] [address] Train Clerk: Anshul Diop M.D. 12 The distribution of plasma von Willebrand factor (VWF) multimers is normal. ADDITIONAL INFORMATION Analyte Specific Reagent: This test was developed and its performance characteristics determined by [facility]. It has not been cleared or approved by the U.S. Food and Drug Administration. Test Performed by: [place] [address] Train Clerk: Anshul Diop M.D. 13 Test Performed by: [place] [address] Train Clerk: Anshul Diop M.D. 14 Note: Increased Protein C activity is of unknown hemostatic significance. Test Performed by: [place] [address] Train Clerk: Henry Madsen III, M.D. 15 Test Performed by: [place] [address] Train Clerk: Henry Madsen III, M.D. 16 Heparin levels greater than 1 U/ml, inhibitors of the APTT test system (especially lupus anticoagulant), or inhibitors of bovine factor V (such antibodies that may arise in patients treated with certain bovine topical thrombin preparations) may produce a falsely normal Protein S Activity result. Suggest clinical correlation and if indicated consider repeat assay of Protein S Activity and Antigen in the absence of anticoagulation therapy. Test Performed by: [place] [address] Train Clerk: Henry Madsen III, M.D. 17 Test Performed by: [place] [address] Train Clerk: Henry Madsen III, M.D. 18 -- REFERENCE VALUE -- <10.0 (Negative) 19 -- REFERENCE VALUE -- <10.0 (Negative) 20 -- REFERENCE VALUE -- <10.0 (Negative) Test Performed by: [place] [address] Train Clerk: Henry Madsen III, M.D. 21 This individual DOES NOT have the factor V Leiden (R506Q) mutation. Although the factor V Leiden mutation is absent, the individual may have other genetic and environmental risk factors for thrombosis. If clinically indicated, suggest Coagulation Consultation 71360 (Thrombophilia Profile) to complete the evaluation for an inherited or acquired thrombosing disorder (i.e., thrombophilia). This test is a direct mutation analysis using PCR amplification, signal generation and release by cleavage of sequence specific alleles ([employer], [employer], [place], [place]). 22 RESULT: MARCO ANTONIO Dwyer Test Performed by: [place] [address] Train Clerk: Henry Madsen III, M.D. 23 -- REFERENCE VALUE -- 10.3 - 12.8 24 No evidence of a lupus-like anticoagulant based on results of Prothrombin Time (PT), Activated Partial Thromboplastin Time (APTT), and Dilute Russ[place] Viper Venom Time (DRVVT). Interpretation not reviewed by physician. Test Performed by: [place] [address] Train Clerk: Henry Madsen III, M.D. 25 Please note the change in the PTT reference range effective 12. 26 Test Performed by: [place] [address] Train Clerk: Henry Madsen III, M.D. Procedures Date Code Description Status 09/07/2017 26461990 Mammogram Completed 07/17/2017 84052 ECHO Transthorasic Realtime 2D W Doppler & Color Flow Completed Hosp 03/23/2017 75371 Laminotomy W/Decomp NRV RT,One Interspace,Lumbar Completed 03/20/2017 93877 EKG, Interpretation Only Completed 06/28/2016 90425 Inject/Drain Joint/Bursa Major W/O US Completed 06/28/201634263 Inject Tendon Sheath Or Ligament Aponeurosis Eg Plantar Completed Fascia 03/23/201571121 Injection Single Tendon Origin/Insertion Completed 12/10/2014 35796 Injection Single Tendon Origin/Insertion Completed 02/14/2014 67766 Laminotomy W/Decomp NRV RT,One Interspace,Lumbar Completed 12/31/2013 02670 Trigger Finger Release Incision / Tendon Sheath Completed Incision 06/26/2013 72930 Rad Exam; Fingers Completed 06/26/2013 67330 Rad Exam; Fingers Completed 06/26/2013 90115 Inject Tendon Sheath Or Ligament Aponeurosis Eg Plantar Completed Fascia 06/26/201334054 Inject Tendon Sheath Or Ligament Aponeurosis Eg Plantar Completed Fascia 12/14/2012 25550 Carpal Tunnel Release Completed 10/30/2012 Injection, Carpal Tunnel Completed 09/27/2012 68162 Nerve Conduction 03-04 Studies Completed 09/27/2012 92275 Nerve Conduction, Sensory Completed 09/27/2012 90195 Nerve Conduction, Motor W/F-Wave Study Completed 05/04/2012 71758 EKG, Interpretation Only Completed 05/20/2003 66227 Color Doppler Completed 05/20/2003 13391 Pulse Doppler & Continuous Wave Completed 05/20/2003 75295 Echocardiogram Completed Encounters Type Date Location Provider Dx Diagnosis Office Visit 04/20/2018 Orthopedic Yehuda Huang, S90.01xA Contusion of 8:00a [facility] right ankle, initial encounter G57.91 Unspecified mononeuropathy of right lower limb Office Visit 11/08/2017 8:30a [facility]opedic [facility] Hazel Lewis, M25.552 Pain in left [facility] hip M16.12 Unilateral primary osteoarthritis, left hip M70.62 Trochanteric bursitis, left hip Office Visit 08/22/2017 [facility] Chet Ribera, Z01.419 Encntr for decal maker 3:00p [facility] exam (general) (routine) w/o abn findings Office Visit 07/17/2017 [facility] Joey Pruitt R07.89 Other chest 2:02p rama Muhammad MD pain Hospitalists E11.9 Type 2 diabetes mellitus without complications Z86.711 Personal history of pulmonary embolism Z68.39 Body mass index (BMI) 39.0-39.9, adult Office Visit 03/23/2017 [facility] Myla Roque, E11.9 Type 2 diabetes 10:23a rama Muhammad M.D. mellitus without Hospitalists complications Z86.711 Personal history of pulmonary embolism E11.9 Type 2 diabetes mellitus without complications Office 03/15/2017 [facility] M47.26 Other spondylosis Visit 2:30p [facility] MD with radiculopathy, lumbar region M51.27 Other intervertebral disc displacement, lumbosacral region Office 02/15/2017 [facility] M47.26 Other spondylosis Visit 2:30p [facility] MD with radiculopathy, lumbar region M51.26 Other intervertebral disc displacement, lumbar region M51.17 Intvrt disc disorders w radiculopathy, lumbosacral region Office Visit 10/27/2016 8:00a Orthopedic Cory Carvalho S46.011D Strain of [facility] Kelli musc/tend the C.M.A. 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 rotator cuff of right shoulder, subs S46.111D Strain of musc/fasc/tend long hd bicep, right arm, subs M75.21 Bicipital tendinitis, right shoulder M75.51 Bursitis of right shoulder M19.011 Primary osteoarthritis, right shoulder Office Visit 06/21/2016 1:30p Orthopedic Cory Carvalho S46.011A Strain of [facility] musc/tend the C.M.A. rotator cuff of right shoulder, init S46.211A Strain of musc/fasc/tend prt biceps, right arm, init Office Visit 01/18/2016 Orthopedic Renetta W55.01xD Bitten by cat, 9:00a [facility] Ranjith Pearson subsequent C.M.A. encounter L03.114 Cellulitis of left upper limb Office Visit 01/12/2016 Orthopedic Renetta S61.452D Open bite of 7:00a [facility] Ranj[facility] Pearson left hand, C.M.A. subsequent encounter W55.01xD Bitten by cat, subsequent encounter L03.114 Cellulitis of left upper limb Office Visit 01/11/2016 7:00a Orthopedic Charla Verduzco S61.452A Open bite of Services Of ADIN Tolbert left hand, C.M.A. initial encounter W55.01xA Bitten by cat, initial encounter L03.114 Cellulitis of left upper limb Office Visit 01/10/2016 8:00a Orthopedic Renetta W55.01xA Bitten by cat , [facility] Ranjith Pearson initial C.M.A. encounter L03.114 Cellulitis of left upper limb Office Visit 12/10/2014 Orthopedic Renetta M77.11 Lateral 3:45p [facility] Kalyani Pearson M.D. epicondylitis, AT [place] right elbow Office Visit 08/11/2014 Orthopedic Leighann 841.9 Sprains & Strains 10:15a Services Of LUCHO Styles Elbow & Forearm C.M.A. Unspec Office Visit 02/14/2014 Neurosurgery Carloz Arzate 722.10 Intervertebral Disc 2:00p [facility] Of Kalyani Gonzales M.D. Displacement Lumbar W/O Myelopathy Office Visit 02/11/2014 [place] Jean Navarro 782.0 Skin Sensation 1:44p [facility] Kalyani Wyman M.D. Disturbance 724.3 Sciatica Office Visit 12/04/2013 4:00p Orthopedic Renetta Pearson, 727.03 Trigger Finger Services Of Kalyani Kasper Acquired AT [place] 727.05 Tenosynovitis Hand & Wrist Other Office 11/14/2012 Orthopedic Renetta Pearson, 354.0 Carpal Tunnel Visit 9:15a Services Of Kalyani M.D. Syndrome AT [place] Office 10/10/2012 Orthopedic Renetta Pearson, 354.0 Carpal Tunnel Visit 9:15a Services Of Physical Education Department Chair M.DCaitlin Syndrome AT [place] Office 05/04/2012 [facility] Nishi Dunn, 786.50 Pain Chest Unspec Visit 3:32p rama Muhammad D.O. Hospitalists Office 05/03/2012 [facility] Jason Smith 786.50 Pain Chest Unspec Visit 3:31p rama Muhammad II, M.D. Hospitalists Office 03/29/2009 [facility] Myla Roque, 414.00 Coronary Visit 12:15a rama Muhammad M.D. Atherosclerosis Hospitalists Unspec Type Vessel [place] Plan of Treatment Future Appointment(s):08/17/2018 4:30 pm - Erma Araujo at [facility]08/06/2018 - BONY Araujo-IndigoeN92.0 Excessive and frequent menstruation with regular cycle
[2018-09-05] MEDS ORDERED: Polymyx/Trimethoprim OPTH* 10 ML BTL BOTH EYES ONE (07:47)
--- NOTE | 2018-09-05 07:57 | ED ---
Throat Pain/Nasal Congestion - HPI Summary HPI Summary: 43-year-old female presents with sinus congestion for the past 4 days. She was seen at urgent care on Monday and prescribed amoxicillin for an ear infection. She states that she just had pain in the left ear and now has pain in both ears. She admits to a sore throat. She admits to worsening cough. She states she is also been having yellow drainage and crusty is on bilateral eyes. Eyes have also been tearing. She denies any fevers. No chest pain or shortness breath. No abdominal pain. states sinus pressure and congestion have been getting worst. Has a history of diabetes. - History of Current Complaint Chief Complaint: EDGeneral Time Seen by Provider: 09/05/18 07:33 - Allergies/Home Medications Allergies/Adverse Reactions: Allergies Allergy/AdvReac Type Severity Reaction Status Date / Time meperidine Allergy Intermediate Hallucinati Verified 09/05/18 06:50 ons hydromorphone Allergy Vomiting Verified 09/05/18 06:50 codeine AdvReac Mild Nausea Verified 09/05/18 06:50 morphine AdvReac Mild Nausea Verified 09/05/18 06:50 PMH/Surg Hx/FS Hx/Imm Hx Endocrine/Hematology History: Reports: Hx Diabetes - TYPE II- on oral medication for Denies: Hx Anticoagulant Therapy, Hx Bone Marrow Disease, Hx Sickle Cell Disease, Hx Thyroid Disease, Hx Anemia Cardiovascular History: Reports: Other Cardiovascular Problems/Disorders - PE/ DVT-2003 s/p arthroscopy of knee- states has had negative workup Denies: Hx Hypertension, Hx Pacemaker/ICD Respiratory History: Reports: Hx Pulmonary Embolism - 2003- Denies: Hx Asthma, Hx Chronic Obstructive Pulmonary Disease (COPD), Hx Sleep Apnea, Other Respiratory Problems/Disorders GI History: Reports: Hx Hiatal Hernia - STATES HAS NO PROBLEMS WITH Denies: Hx Crohn's Disease, Hx Gastroesophageal Reflux Disease, Hx Irritable Bowel, Hx Ulcer History: Reports: Hx Kidney Infection - HX OF X 1 IN THE PAST Denies: Hx Renal Disease, Other Problems/Disorders Musculoskeletal History: Reports: Hx Back Problems, Hx Orthopedic Injury, Hx Tendonitis - RIGHT ELBOW, Other Musculoskeletal History Denies: Hx Arthritis Sensory History: Reports: Hx Contacts or Glasses Denies: Hx Hearing Aid Opthamlomology History: Reports: Hx Contacts or Glasses Neurological History: Reports: Hx Migraine - monthly-treats excedrin migraine Denies: Hx Nerve Disease, Hx Seizures Psychiatric History: Denies: Hx Anxiety, Hx Depression, Hx Panic Disorder - Cancer History Hx Chemotherapy: No Hx Radiation Therapy: No - Surgical History Surgery Procedure, Year, and Place: [id number] [facility]. LEFT KNEE ARTHROSCOPY - 2003 [facility]. T+A 2006 [facility]. APPENDIX- 2008 [facility]. LEFT POINTER FINGER TRIGGER- 2009 [facility], CARPAL TUNNEL LT WRIST 11/2012. D&C [facility]. left trigger thumb Nov 2013. discectomy lumbar 2013. SALIVARY GLAND REMOVED 2014. 07/15/15 RIGHT ELBOW REATTACH TENDON Hx Anesthesia Reactions: Yes - GENERAL- EXTREME N/V-NO PROBLEMS WITH LAST GENERAL WITH DR. MORENO - Immunization History Date of Tetanus Vaccine: 2008 Date of Influenza Vaccine: Fall 2011 Infectious Disease History: No Infectious Disease History: Denies: Hx Clostridium Difficile, Hx Hepatitis, Hx Human Immunodeficiency Virus (HIV), Hx of Known/Suspected MRSA, Hx Shingles, Hx Tuberculosis, Hx Known/ Suspected VRE, Hx Known/Suspected VRSA, History Other Infectious Disease, Traveled Outside the [place] in Last 30 Days - Family History Known Family History: Positive: None Negative: Renal Disease - Social History Alcohol Use: None Hx Substance Use: No Substance Use Type: Reports: None Hx Tobacco Use: No Smoking Status (MU): Never Smoked Tobacco Have You Smoked in the Last Year: No Review of Systems Negative: Fever Positive: Drainage, Erythema Positive: Sore Throat, Ear Ache, Nasal Discharge Negative: Chest Pain Positive: Cough. Negative: Shortness Of Breath Negative: Abdominal Pain All Other Systems Reviewed And Are Negative: Yes Physical Exam Triage Information Reviewed: Yes Vital Signs On Initial Exam: Initial Vitals Temp Pulse Resp BP Pulse Ox 99.4 F 116 18 149/106 98 09/05/18 06:46 09/05/18 06:46 09/05/18 06:46 09/05/18 06:46 09/05/18 06:46 Vital Signs Reviewed: Yes Appearance: Positive: Ill-Appearing Skin: Positive: Warm, Dry Head/Face: Positive: Normal Head/Face Inspection Eyes: Positive: EOMI, RASHAUN, Conjunctiva Inflammed, Discharge - yellow ENT: Positive: Pharyngeal erythema, TMs normal - fluid behind, Sinus tenderness , Uvula midline, Other - soft palate symmetric. Negative: Tonsillar swelling, Tonsillar exudate, Trismus, Muffled voice Respiratory/Lung Sounds: Positive: Clear to Auscultation, Breath Sounds Present Cardiovascular: Positive: Normal, RRR Abdomen Description: Positive: Nontender, Soft Bowel Sounds: Positive: Present Musculoskeletal: Positive: Normal Neurological: Positive: Normal Psychiatric: Positive: Normal Diagnostics - Vital Signs Vital Signs Temp Pulse Resp BP Pulse Ox 09/05/18 06:46 99.4 F 116 18 149/106 98 - Laboratory Lab Statement: Any lab studies that have been ordered have been reviewed, and results considered in the medical decision making process. - Radiology chest Radiology Interpretation Completed By: Radiologist Summary of Radiographic Findings: IMPRESSION: NO EVIDENCE FOR ACTIVE CARDIOPULMONARY DISEASE. Re-Evaluation - Re-Evaluation First Eval Re-Evaluation Time: 08:22 Comment: discussed results EENT Course/Dx - Course Course Of Treatment: 43-year-old female presents with sinus congestion for the past 4 days. She was seen at urgent care on Monday and prescribed amoxicillin for an ear infection. She states that she just had pain in the left ear and now has pain in both ears. She admits to a sore throat. She admits to worsening cough. She states she is also been having yellow drainage and crusty is on bilateral eyes. Eyes have also been tearing. She denies any fevers. No chest pain or shortness breath. No abdominal pain. states sinus pressure and congestion have been getting worst. Has a history of diabetes. On exam conjunctiva injected with yellow drainage. sinus tenderness present. lungs CTA. pharynx erythematous. this is likely still viral but as symptoms have been getting worst will switch to augmentin. will start on flonase. gave tessalon and inhaler for cough. chest xray normal. patient understand and agrees with plan. - Diagnoses Provider Diagnoses: Sinusitis, Upper respiratory infection, Conjunctivitis Discharge - Sign-Out/Discharge Documenting (check all that apply): Patient Departure Patient Received Moderate/Deep Sedation with Procedure: No - Discharge Plan Condition: Good Disposition: HOME Prescriptions: Albuterol HFA INHALER* [Ventolin HFA Inhaler*] 1 puff INH Q6H PRN #1 mdi PRN Reason: Cough Amoxicillin/Clavulanate TAB* [Augmentin TAB 875*] 875 mg PO BID #20 tab Benzonatate CAP* [Tessalon 100 MG CAP*] 100 mg PO TID PRN #21 cap PRN Reason: Cough Fluticasone NASAL SPRAY 50MCG* [Flonase NASAL SPRAY 50MCG*] 2 spray BOTH NARES DAILY #1 btl Patient Education Materials: Sinusitis (ED) Referrals: Yuliet Harper MD [Primary Care Provider] - Additional Instructions: Place 1 drop polytrim in eye four times a day for 7 days take augmentin twice a day for 10 days Use saline spray in nose as much as needed Use intranasal steroid two spray each nostril daily use tessalon three times a day for cough use inhaler 1-2 puff eveyr 6 hours for cough Take Tylenol or ibuprofen for headache every 6 hours Follow up with primary Return to ED if develop any new or worsening symptoms - Billing Disposition and Condition Condition: GOOD Disposition: Home
[2018-09-05 08:31] VITALS: BP 169/89
== END 2018-09-05 08:30 | disposition home or self-care (01) ==
LOC: ED 06:41
DX: J32.9 Chronic sinusitis, unspecified (principal); J06.9 Acute upper respiratory infection, unspecified; H10.9 Unspecified conjunctivitis; E11.9 Type 2 diabetes mellitus without complications; Z88.5 Allergy status to narcotic agent; Z79.84 Long term (current) use of oral hypoglycemic drugs
CPT/HCPCS: 71046; 99282

== ENCOUNTER → 2018-12-20 | Day surgery (SDC) | payer BC ==
[~2018-12-20] MED LIST changes: -Acetaminophen IV 1GM/100ML * 1,000 MG/100 ML VIAL IVPB ONE; -Buffered Lidocaine 0.9% SYRIN* 5 ML/SYR SYRINGE INTRADERM ONE; +Buffered Lidocaine 1% SYRIN* 1 ML/SYRINGE INTRADERM ONE; +Dexamethasone IV* 4 MG/ML 1 ML (4 MG) IV SLOW PU ONE; +Dexamethasone IV* 4 MG/ML 1 ML (4 MG) ONE; +Famotidine IV* 10 MG/ML 2 ML (20 mg) ONE; +HYDROcodone/ACETAMIN 5-325 MG* 1 TAB PO PRN; +Heparin VIAL(*) 5000 UNITS/ML VIAL (FIVE THOUSAND) ONE; +KETAMINE HCL* 50 MG/ML 10 ML VIAL ONE; +Ketorolac INJ* 30 MG/ML 1 ML VIAL ONE; +Lactated Ringers 1000 ML Bag* 1,000 ML IV SCH; +Lidocaine 2% PF * 5 ML VIAL ONE; +Midazolam* 1 MG/ML 5 ML VIAL (5 MG) ONE; +Naloxone* 0.4 MG/ML 1 ML VIAL IV PRN; +Ondansetron INJ* 2 MG/ML VIAL ONE; +PROCHLORPERAZINE INJ 5 MG/ML 2 ML VIAL IV PRN; +PROCHLORPERAZINE INJ 5 MG/ML 2 ML VIAL ONE; +Propofol* 10 MG/ML 20 ML BTL ONE; -Scopolamine 1.5 mg* PATCH TRANSDERM ONE; +Silver Nitrate/Potassium Nitr* 1 EA STICK ONE; +fentaNYL* 50 MCG/ML 2 ML VIAL (100 MCG VIAL) IV PRN; +fentaNYL* 50 MCG/ML 2 ML VIAL (100 MCG VIAL) ONE; +oxyCODONE/Acetamin 5/325 MG* TAB PO PRN
--- NOTE | 2018-12-20 11:56 | OP ---
CC: [facility] OPERATIVE REPORT: DATE OF OPERATION: 12/20/18 DATE OF : 73 SURGEON: Chet Ribera MD ANESTHESIOLOGIST: Dr. Vasques. ANESTHESIA: General endotracheal anesthesia. PRE-OP DIAGNOSES: Menorrhagia and dysmenorrhea. POST-OP DIAGNOSES: Menorrhagia and dysmenorrhea. OPERATIVE PROCEDURE: Dilation, hysteroscopy, MyoSure polypectomy, and NovaSure ablation. ESTIMATED BLOOD LOSS: Minimal, less than 20 cc. SPECIMEN: Endometrial curettings and endometrial polyp. FLUIDS: Per Anesthesia. Deficit on the MyoSure was 460 cc. FINDINGS: Small retroverted uterus. No adnexal masses palpated. There was a small polyp at the junction between the internal os and the uterus on the anterior surface. No fibroids were seen in the endometrium. The uterus sounded to 8. The cervix measured 4. The cavity length was 4. The width was 3.6. The power was 79. The time was 1 minute and 12 seconds. Sponge count was correct x2. The patient tolerated the procedure well and was brought to recovery room, awake and in stable condition. DESCRIPTION OF PROCEDURE: The patient was brought to the operating room. When general anesthesia was found to be adequate, the patient was prepped and draped in the usual sterile fashion in the dorsal lithotomy position. Time-out was performed. Exam under anesthesia was performed. The weighted speculum was placed in the vagina. The anterior lip of the cervix was grasped with a single- tooth tenaculum and the cervix was measured at 4 mm. The uterus sounded to 8. The uterus was retroverted. The cervix was gently and easily dilated with the graduated dilators. The hysteroscope was introduced. The small polyp was seen. The polyp was removed with the MyoSure LITE. Curettage was then performed. The polyp and endometrial curettings were sent together to Pathology. The NovaSure ablation was then completed after the cavity assessment was normal. The hysteroscope was reinserted. A good ablation was noted throughout. The tenaculum was removed. Excellent hemostasis was noted on the cervix. All instruments were removed from the vagina and the patient was brought to the recovery room, awake and in stable condition. [id number]/[facility] #: [id number] [facility]
[2018-12-20 13:00] VITALS: BP 154/104
== END | disposition home or self-care (01) ==
LOC: OR 07:25
PROVIDERS: ATTEND Obstetrics & Gynecology
DX: N92.0 Excessive and frequent menstruation with regular cycle (principal); N94.6 Dysmenorrhea, unspecified; E11.9 Type 2 diabetes mellitus without complications; Z79.84 Long term (current) use of oral hypoglycemic drugs; Z86.718 Personal history of other venous thrombosis and embolism; Z86.711 Personal history of pulmonary embolism
CPT/HCPCS: 81025; 88305; A9270-GY; J0780; J1100; J1644; J1885; J2250; J2405; J2704; J3010

== ENCOUNTER 2019-02-27 05:41 | Day surgery (SDC) | payer BC ==
[~2019-02-27 05:41] MED LIST changes: -Dexamethasone IV* 4 MG/ML 1 ML (4 MG) IV SLOW PU ONE; -Dexamethasone IV* 4 MG/ML 1 ML (4 MG) ONE; -Famotidine IV* 10 MG/ML 2 ML (20 mg) IV ONE; -Famotidine IV* 10 MG/ML 2 ML (20 mg) ONE; -HYDROcodone/ACETAMIN 5-325 MG* 1 TAB PO PRN; -Heparin VIAL(*) 5000 UNITS/ML VIAL (FIVE THOUSAND) ONE; -KETAMINE HCL* 50 MG/ML 10 ML VIAL ONE; -Ketorolac INJ* 30 MG/ML 1 ML VIAL ONE; -Lactated Ringers 1000 ML Bag* 1,000 ML IV SCH; -Lidocaine 2% PF * 5 ML VIAL ONE; -Midazolam* 1 MG/ML 5 ML VIAL (5 MG) ONE; -Naloxone* 0.4 MG/ML 1 ML VIAL IV PRN; -Ondansetron INJ* 2 MG/ML VIAL ONE; -PROCHLORPERAZINE INJ 5 MG/ML 2 ML VIAL IV PRN; -PROCHLORPERAZINE INJ 5 MG/ML 2 ML VIAL ONE; -Propofol* 10 MG/ML 20 ML BTL ONE; -Silver Nitrate/Potassium Nitr* 1 EA STICK ONE; -fentaNYL* 50 MCG/ML 2 ML VIAL (100 MCG VIAL) IV PRN; -fentaNYL* 50 MCG/ML 2 ML VIAL (100 MCG VIAL) ONE; -oxyCODONE/Acetamin 5/325 MG* TAB PO PRN
[2019-02-27] MEDS ORDERED: Lactated Ringers 1000 ML Bag* 1,000 ML IV SCH (06:00)
[2019-02-27] MEDS ORDERED: Dexamethasone IV* 4 MG/ML 1 ML (4 MG) IV SLOW PU ONE (06:00)
[2019-02-27] MEDS ORDERED: Scopolamine 1.5 mg* PATCH TRANSDERM ONE (06:00)
[2019-02-27] MEDS ORDERED: Famotidine IV* 10 MG/ML 2 ML (20 mg) IV ONE (06:00)
[2019-02-27] MEDS ORDERED: ceFAZolin 2 GM in NS PREMIX(*) 2 GM/100 ML BAG IVPB ONE (06:36)
[2019-02-27] MEDS ORDERED: Famotidine IV* 10 MG/ML 2 ML (20 mg) ONE (06:36)
[2019-02-27] MEDS ORDERED: Dexamethasone IV* 4 MG/ML 1 ML (4 MG) ONE (06:36)
[2019-02-27] MEDS ORDERED: Buffered Lidocaine 1% SYRIN* 1 ML/SYRINGE INTRADERM ONE (06:36)
[2019-02-27] MEDS ORDERED: Scopolamine 1.5 mg* PATCH ONE (06:54)
[2019-02-27] MEDS ORDERED: Insulin LISPRO* 1 UNITS UNIT SUBCUT ONE ×2 (07:02→08:51)
[2019-02-27] MEDS ORDERED: fentaNYL* 50 MCG/ML 2 ML VIAL (100 MCG VIAL) ONE ×3 (07:07→11:10)
[2019-02-27] MEDS ORDERED: Midazolam* 1 MG/ML 5 ML VIAL (5 MG) ONE (07:07)
[2019-02-27] MEDS ORDERED: Propofol* 10 MG/ML 20 ML BTL ONE (07:08)
[2019-02-27] MEDS ORDERED: Succinylcholine* 20 MG/ML 10 ML VIAL ONE (07:08)
[2019-02-27] MEDS ORDERED: Lidocaine 2% PF * 5 ML VIAL ONE (07:08)
[2019-02-27] MEDS ORDERED: Bupivacaine 0.25% EPI 200,000* 30 ML SDV ONE (07:32)
[2019-02-27] MEDS ORDERED: Ketorolac INJ* 30 MG/ML 1 ML VIAL ONE (07:45)
[2019-02-27] MEDS ORDERED: KETAMINE HCL* 50 MG/ML 10 ML VIAL ONE (07:45)
[2019-02-27] MEDS ORDERED: Propofol* 500 MG/50 ML BTL ONE (07:48)
[2019-02-27] MEDS ORDERED: Metoprolol Tartrate IV* 1 MG/ML 5 ML VIAL ONE (08:10)
[2019-02-27] MEDS ORDERED: Phenylephrine 40 MCG/ML SYRINGE ONE (08:25)
[2019-02-27] MEDS ORDERED: HYDROcodone/ACETAMIN 5-325 MG* 1 TAB PO PRN (08:28)
[2019-02-27] MEDS ORDERED: PROCHLORPERAZINE INJ 5 MG/ML 2 ML VIAL IV PRN (08:28)
[2019-02-27] MEDS ORDERED: Naloxone* 0.4 MG/ML 1 ML VIAL IV PRN (08:28)
[2019-02-27] MEDS ORDERED: oxyCODONE/Acetamin 5/325 MG* TAB PO PRN (08:28)
[2019-02-27] MEDS ORDERED: EPHEDrine (Pressors)* 50 MG/ML VIAL ONE (08:46)
[2019-02-27] MEDS ORDERED: Ondansetron INJ* 2 MG/ML VIAL ONE (08:57)
[2019-02-27] MEDS: fentaNYL* 50 MCG/ML 2 ML VIAL (100 MCG VIAL) IV PRN ×3 (10:17→11:12)
[2019-02-27] MEDS ORDERED: HYDROcodone/ACETAMIN 5-325 MG* 1 TAB ONE (11:13)
[2019-02-27 11:55] VITALS: BP 137/87
--- NOTE | 2019-02-28 01:56 | OP ---
DATE OF OPERATION: 02/27/19 - [facility] DATE OF : 73 SURGEON: Cory Pereira MD REAL ESTATE EXECUTIVE ASSISTANT: ADIN Argueta. A physician retirement assistant was required for the length of the procedure for assistance with patient positioning, retraction, and closure. ANESTHESIOLOGIST: Dr. Lashell Vasques. ANESTHESIA: General anesthesia, local anesthesia using Marcaine 0.25% with epinephrine, 20 to 30 cc were utilized. PRE-OP DIAGNOSES: 1. Left elbow lateral epicondylitis, traumatic, with moderate grade partial tears, common extensor tendon. 2. Left elbow high-grade partial tears, lateral ulnar collateral ligament, radial collateral ligament. 3. Left elbow posterior ganglion associated with elbow joint. POST-OP DIAGNOSES: 1. Left elbow lateral epicondylitis, traumatic, with moderate grade partial tears, common extensor tendon. 2. Left elbow high-grade partial tears, lateral ulnar collateral ligament, radial collateral ligament. 3. Left elbow posterior ganglion associated with elbow joint. OPERATIVE PROCEDURES: 1. Left elbow lateral epicondyle debridement, extensor carpi radialis brevis, and common extensor tendon repair. 2. Left elbow lateral ulnar collateral ligament repair. 3. Left elbow aspiration ganglion cyst, posterior elbow. ANTIBIOTICS: Ancef 2 g IV. IV FLUIDS: See Anesthesia note. XPDG-LE-GJCC TIME: 64 minutes. TOURNIQUET TIME: 75 minutes, left upper arm tourniquet at 250 mmHg. SPECIMEN: Less than 1 cc of ganglion-type fluid was sent to Pathology. This was aspirated from the posterior elbow region. IMPLANTS: 2 Mitek GRYPHON suture anchors, double-loaded were utilized. COMPLICATIONS: None. ESTIMATED BLOOD LOSS: Minimal. 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 Refer to my history and physical for full details of injury and treatment course but sufficed to say that the patient responded insufficiently to nonoperative management and chose to proceed with surgery. My surgical plan was at a minimal to repair the patient's common extensor tendon at the lateral epicondyle and to debride any tissue of the extensor carpi radialis brevis. As needed and appropriate to my plan was also to repair the lateral collateral ligament, or more specifically the lateral ulnar collateral ligament. As well, I plan to likely aspirate the ganglion visible on preoperative MRI imaging but less likely symptomatic, the ganglion. Discussed risks and potential complications of surgery. The patient opted to move forward with surgery. DESCRIPTION OF PROCEDURE: In preoperative holding, the patient signed a written consent. Operative extremity was marked in preoperative holding. The patient was taken back to the operating room where she remained on the stretcher. The patient was sedated and intubated. Hand table was applied. Tourniquet was applied to the left upper arm. The left upper extremity was prepped and draped. Surgical time-out was performed. Esmarch was applied and the tourniquet was elevated to 250 mmHg. The elbow was flexed to 90 degrees. A longitudinal skin incision was marked with a pen, slightly oblique. This was longer than my typical lateral epicondylitis incision because my plan to also likely do a lateral ulnar collateral ligament repair. I next moved to the posterior elbow. I palpated what I felt to be the tiniest of ganglion, bumps about the posterior elbow, just proximal to the olecranon, proximal tip more medial than lateral. I used an 18-gauge needle and a 10 cc syringe and I aspirated some fluid from that location. It was less than 1 cc of fluid. It looked yellow like joint fluid but slightly thicker, so I believed this to be ganglion fluid. I next proceeded to make my skin incision where I had previously marked with the pen. I dissected down with scissors, spreading dissection to the fascial layer. Used bipolar in the subcutaneous tissue once or twice to prevent any bleeding. I examined the fascia well. There was an excellent demarcation between the ECRL and the EDC, both between tendon and muscle and because of the nice fat stripe. I made an incision between the ECRL and EDC. I retracted both and clearly identified the underlying ECRB attached to additional common extensor tendon that had all retracted off of the lateral epicondyle. I used a knife with a scratch test to remove some ECRB tissue. I then prepared the bone of the lateral epicondyle by curetting and rongeuring off the yaneth- shaped origin site of the ECRB. No tendon was removed from this bone and this was essentially a naked bone origin site. I next proceeded to dissect down to the lateral ulnar collateral ligament. Identified in the fascia, the plane between the ECU tendon and the anconeus. I made an incision between the two closer to the ECU then to the anconeus. I retracted the fascial layers on either side. I dissected down to what was clearly the lateral ulnar collateral ligament and capsular tissue. I identified this and then I identified some bone more proximally where I could place another suture anchor to involve in my lateral collateral ligament tightening and repair. I next placed two suture anchors. These were Mitek Gryphon anchors. One was placed in the yaneht-shaped origin of the ECRB. The other was placed more inferior and slightly more proximal about the lateral epicondyle in line with my fascial incision to identify the lateral ulnar collateral ligament. I next used a free needle to place stitches from the suture anchors. The more superior first anchor I placed horizontal mattress stitches in the common extensor tendon, two of them. I tied these and then I used the sutures from these knots again, at lease in one case, to then close the fascial layer between the ECRL and the EDC. I then cut those sutures. With the sutures from the more inferior anchor, I placed two stitches in the lateral ulnar collateral ligament, tightening it. I reused one pair of sutures to then close the fascial layer between the ECU and the anconeus. I next placed running stitches and the two fascial incisions that I had made using Vicryl 0 suture. These were both water-tight closures. I irrigated throughout the procedure I should state. I then closed the subcutaneous tissue with buried simple sutures using Vicryl 3-0 suture. The subcuticular layer was closed with a running stitch using Monocryl 3-0 suture. Mastisol was applied and Steri-Strips were then applied. Local anesthetic was injected about the subcutaneous tissue. 4x4's, Sterile Webril, non-sterile Webril. A splint was then applied with a posterior slab and a sugar tong slab. A sling was applied. The patient was awakened, extubated, and transferred to the PACU. DISPOSITION: The patient was discharged home with Percocet as needed for pain control. Due to her history of DVT in the past, the patient will be on aspirin 325 mg by mouth twice daily for 2 weeks even though this is an upper extremity surgery. The patient will follow up in approximately 7 days postoperatively in clinic and will be converted at that time from the splint to an elbow brace. Thereafter, we will allow the patient to use an elbow brace or a wrist brace whichever is more comfortable. At 7 days out, we will also give the patient to take physical therapy prescription and allow her to start that. The patient will be immobilized in one way or another for 6 weeks postoperative and will take an abundance of caution. [id number]/[facility] #: [id number] MTDD
[2019-03-02] MEDS ORDERED: Scopolamine PATCH Remove* 1 NOTE MISC PATCH OFF ONE (06:00)
== END 2019-02-27 12:00 | disposition home or self-care (01) ==
LOC: OR 05:41
PROVIDERS: ATTEND Orthopaedic Surgery
DX: M77.12 Lateral epicondylitis, left elbow (principal); M67.422 Ganglion, left elbow; S53.442A Ulnar collateral ligament sprain of left elbow, initial encounter; X50.9XXA Other and unspecified overexertion or strenuous movements or postures, initial encounter; Y93.K1 Activity, walking an animal; Y92.9 Unspecified place or not applicable; E11.9 Type 2 diabetes mellitus without complications; Z79.84 Long term (current) use of oral hypoglycemic drugs; I10 Essential (primary) hypertension; Z86.718 Personal history of other venous thrombosis and embolism
CPT/HCPCS: 81025; 88112; A9270-GY; J0330; J0690; J1100; J1815; J1885; J2250; J2405; J2704; J3010; J3490